=== PATIENT | male | born 1965 | race Caucasian/White ===

== ENCOUNTER 2022-02-13 09:56 | Inpatient (IN) ==
--- NOTE | 2022-02-13 10:11 | Emergency Department Note ---
Impression & Plan Suicidal ideations, Depression, Alcohol abuse ED Provider Note NAME: PAULO SAMAYOA AGE: 56 SEX: M : 1965 ARRIVES VIA: [employer] INFORMANT: Patient ED PROVIDER(S): Ross Gomez DO CHIEF COMPLAINT: mood disorder HPI: Patient is a 56-year-old male who presents the ER feeling helpless and he has no reason to live. He notes he wants to kill himself. He went to the [facility] to get checked in but they sent him over here to be evaluated. He admits for the past week he has been drinking about 1/5 of alcohol a day. He last drank at about 4 AM. Denies any headache or change in vision. No chest pain or shortness of breath. No nausea vomiting or diarrhea. He made statements at the [facility] that he was going to kill himself and requested the officers gun so he could shoot himself. He also admits to chronic testicular pain which occurred 3 months after his TURP performed in 2020. He remembers his symptoms starting somewhere around July. They have been persistent. He has been intermittent prescribed OxyContin. He is scheduled appointment with pain management has not but has not been evaluated there yet. Pain is unchanged in any way. ROS: See above HPI for pertinent positives & negatives. A total of 10 systems reviewed and were otherwise negative. PAST MEDICAL HISTORY:See Below PAST SURGICAL HISTORY:See Below FAMILY HISTORY:See Below SOCIAL HISTORY:See Below HOME MEDICATIONS:See Below ALLERGIES:See Below VITALS:See Below PHYSICAL EXAMINATION: GENERAL: Sitting up in bed, alert, disheveled, tearful EYE EXAM: normal conjunctiva. OROPHARYNX: mucous membranes are moist NECK: supple, no nuchal rigidity, no adenopathy, non-tender LUNGS: Clear to auscultation. Normal chest wall mechanics HEART: no murmurs, S1 normal and S2 normal ABDOMEN: abdomen soft, non-tender, normo-active bowel sounds, no masses, no rebound or guarding. : Normal external genitalia. Faint tenderness posterior aspect of the right testicle. No swelling or erythema. Positive cremasteric reflex. Normal circumcised genitalia. UPPER EXTREMITIES: upper extremities are grossly normal. LOWER EXTREMITIES: No pitting edema. NEURO EXAM: Normal sensorium, cranial nerves II-XII grossly intact, normal speech, no gross weakness of arms, no gross weakness of legs. PSYCH: Admits to suicidal ideations with a plan to kill self. MEDICAL DECISION MAKING: Patient is a 56-year-old male who presents the ER for suicidal ideations with plan to kill himself. Blood work was obtained and showed no significant leukocytosis or anemia. BMP along with LFTs bilirubin and TSH was unremarkable. UA was contaminated without signs of infection. Tox was negative. Alcohol was elevated 205. Covid was negative. He was observed in the ER for 6+ hours. He still admits to suicidal thoughts with a plan after being medically cleared. Will bed search for placement. While in the ER he was given 2 dose of Ativan and 1 dose of Librium over the course of 6 hours. He has never shown signs of withdrawal and that heart rate has never really been elevated and blood pressure has remained fairly stable in the 120s to 130s. I do favor a lot of this is anxiety. He also complains of chronic testicular pain which has been present since July and has been worked up extensively with multiple ultrasounds and he follows with urology and is referred him to pain management but has not seen them. Recently over the past month he has been prescribed narcotics and is very adamant about receiving his narcotics as well. He was given 1 dose while here but otherwise given Tylenol and Motrin. Pt was signed out to Dr. Ahmadi at the change of shift. Observation Status: Indication: Suicidal ideations and alcohol intoxication Patient with no pertinent family history, was seen first at 1010 hrs and was necessary in order to determine medical stability and avoid unnecessary admission. Upon reevaluation, 7 hours of observation revealed that the patient should be admitted to a psychiatric facility. Disposition date and time 02/13/2022 at 1700. Pt was signed out to Dr. Ahmadi at change of shift awaiting placement. Triage Nursing notes reviewed. Limited review of prior medical records performed Vital Signs: reviewed and remarkable for no significant abnormalities Differential diagnosis: Mood disorder, infection, hypoglycemia, electrolyte abnormalities, cardiac sources, intracerebral event, toxicologic, trauma, neurologic, as well as other pathologies. ER treatment provided: See below Diagnostics interpreted by me: ECG: none Laboratory studies: As stated above and show below. Imaging studies: See below Consultation(s): none Procedures: none Critical Care: None Past Med/Surg History Medical History BPH (benign prostatic hyperplasia) Emphysema of lung GERD (gastroesophageal reflux disease) History of alcoholism Hx of colonic polyps Hx of pancreatitis 20+ years ago Surgical History H/O transurethral resection of prostate History of colonoscopy Family History Father Lung cancer Mother Lung cancer Denies family history of Ovarian cancer Prostate cancer Myocardial infarction Breast cancer Colorectal cancer Social History (System 02/13/22 @ 10:56 by Ravi Pritchard) Smoking Status: Current some day smoker Tobacco Type: E-cigarettes / Vaping Age Started Using Tobacco: 18; Age Quit Using Tobacco: 35; packs per day: 0.5; Years Smoked: 17; Cigarettes Per Day: 10; Number of Years Since Quit: 15; Second Hand Exposure: Yes (hx); Hx Alcohol Use: No (hx alcoholism quit ~1999) Hx Substance Use: No Preferred Language: [place] Islander Communication Ability: Effective Visual Impairment: No Limitations Hearing Ability: Normal Sales Development Representative Required: No Beliefs That Will Affect Care: None marital status: Current Living Situation: Spouse current occupational status: employed current occupation: Therapist How many Children do You have: 1 Feels Safe at Home: Yes Childhood Exposure to Second-Hand Smoke: Yes caffeine: Yes during the past year weight has: remained stable Dental Care, Regularly: Yes Physical Activity Frequency: Daily Seatbelt Use: always Sunscreen Use: Yes Assistive Devices: Glasses Allergies Allergies Allergy/AdvReac Type Severity Reaction Status Date / Time No Known Allergies Allergy Verified 02/13/22 10:56 Home Meds Home Medications Medication Instructions Recorded Confirmed umeclidinium 62.5 mcg-vilanterol 1 inh INHALATION QAM 07/31/21 02/06/22 25 mcg/actuation powdr for inhalation (Anoro Ellipta) propranolol 10 mg tablet 10 mg PO QAM 08/09/21 02/06/22 olanzapine 5 mg tablet 5 mg PO QPM 02/06/22 02/06/22 oxycodone 10 mg tablet,crush 10 mg PO BID PRN 02/06/22 02/06/22 resistant,extended release 12 hr (OxyContin) Ativan 1 mg PO Q8 PRN 02/13/22 02/13/22 OxyContin 10 mg PO BID 02/13/22 02/13/22 Prilosec OTC 20 mg PO DAILY 02/13/22 02/13/22 Previous Rx's Medication Instructions Recorded chlorpheniramine maleate 4 mg 4 mg PO Q12H 30 Days #60 tab 07/24/21 tablet (Allergy Relief (chlorpheniramine)) omeprazole magnesium 20 mg 20 mg PO QAM #90 cap 02/01/22 capsule,delayed release (Acid Roof Fitter (omeprazole)) lorazepam 1 mg tablet (Ativan) 1 mg PO BID PRN #10 tab 02/06/22 fluticasone propionate 50 1 spray INTRANASAL BID #18.2 ml 02/09/22 mcg/actuation nasal spray,suspension (Flonase Allergy Relief) Results & Data (ED) Vital Signs Vital Signs - 24 hr 02/13/22 09:44 02/13/22 13:36 02/13/22 15:00 Temperature 36.4 C L Temperature Source Temporal Artery Scan Pulse Rate 97 H Pulse Rate [Finger] 100 H Pulse Rhythm Regular Pulse Strength Normal Respiratory Rate 16 20 18 Respiratory Effort / Characteristics Non-Labored Non-Labored Spontaneous Non-Labored Respiratory Depth Normal Normal Normal Respiratory Pattern Regular Regular Blood Pressure 150/84 H Blood Pressure [Right Arm] 125/78 Blood Pressure Mean 106 Blood Pressure Mean [Right Arm] 93 Blood Pressure Position [Right Arm] Sitting Pulse Oximetry 98 96 96 Oxygen Delivery Method Room Air Room Air Room Air Sepsis Recent Fever Within 48 Hours No Sepsis New/Unexplained Change in Mental Status No Sepsis Action Taken by Nursing No Action Required 02/13/22 16:00 Temperature 37.0 C Temperature Source Oral Pulse Rate Pulse Rate [Finger] 85 Pulse Rhythm Pulse Strength Respiratory Rate 20 Respiratory Effort / Characteristics Non-Labored Respiratory Depth Normal Respiratory Pattern Regular Blood Pressure Blood Pressure [Right Arm] 120/82 Blood Pressure Mean Blood Pressure Mean [Right Arm] 94 Blood Pressure Position [Right Arm] Lying Pulse Oximetry 98 Oxygen Delivery Method Room Air Sepsis Recent Fever Within 48 Hours Sepsis New/Unexplained Change in Mental Status Sepsis Action Taken by Nursing Laboratory Data Result diagrams: 02/13/22 10:15 02/13/22 10:15 Lab Results 02/13/22 02/13/22 02/13/22 Range/Units 10:10 10:10 10:15 WBC 5.49 (4.8-10.8) K/uL RBC 4.70 (4.7-6.1) M/uL Hgb 14.9 (14.0-18.0) g/dL Hct 41.1 L (42-52) % MCV 87.4 (80-100) fL MCH 31.7 (25-34) pg MCHC 36.3 H (32-36) g/dL RDW Std Deviation 43.7 (36.4-46.3) fL RDW Coeff of Mckenzie 13.6 (11.5-14.5) % Plt Count 411 H (130-400) K/uL MPV 8.6 (7.4-10.4) fL Immature Gran % (Auto) 0.2 % Neut % (Auto) 53.8 % Lymph % (Auto) 36.6 % Divide % (Auto) 5.8 % Eos % (Auto) 1.8 % Baso % (Auto) 1.8 % Neut # (Auto) 2.95 (1.4-6.5) K/uL Lymph # (Auto) 2.01 (1.2-3.4) K/uL Divide # (Auto) 0.32 (0.11-0.59) K/uL Eos # (Auto) 0.10 (0-0.5) K/uL Baso # (Auto) 0.10 (0-0.2) K/uL Immature Gran # (Auto) 0.01 (0.00-0.02) K/uL Sodium (136-145) mmol/L Potassium (3.5-5.1) mmol/L Chloride (98-107) mmol/L Carbon Dioxide (21-32) mmol/L Anion Gap (3-11) BUN (6-23) mg/dl Creatinine (0.6-1.4) mg/dl Est Cr Clr Drug Dosing ml/min Est GFR ( Amer) ml/min Est GFR (Non-Af Amer) ml/min BUN/Creatinine Ratio (10-20) Glucose (70-99(Fasting)) mg/dl Calcium (8.5-10.1) mg/dl Total Bilirubin (0.2-1.0) mg/dl AST (13-39) U/L ALT (7-52) U/L Alkaline Phosphatase (34-104) U/L Total Protein (6.0-8.3) gm/dl Albumin (3.4-5.0) gm/dl Globulin (2.5-4.0) gm/dl Albumin/Globulin Ratio (0.9-2) TSH (0.300-4.500) uIu/ml Urine Color Dark Yellow Urine Appearance Clear (Clear) Urine pH 7.0 (4.5-7.5) Ur Specific [place] 1.031 H (1.000-1.030) Urine Protein 2+ H (Negative) Urine Glucose (UA) Negative (Negative) Urine Ketones Trace H (Negative) Urine Blood Trace H (Negative) Urine Nitrite Negative (Negative) Urine Bilirubin Negative (Negative) Urine Urobilinogen Negative (Negative) Ur Leukocyte Esterase Negative (Negative) Urine WBC (Auto) 1-5 (0-5) /hpf Urine RBC (Auto) 0-4 (0-4) /hpf U Hyaline Cast (Auto) 10-30 H (0-5) /lpf U Epithel Cells (Auto) >30 H (0-5) /lpf Urine Bacteria (Auto) Negative (Negative) Salicylates (3.0-30) mg/dl Urine Opiates Screen Neg (Neg) Ur Methadone, Qual Neg (Neg) Acetaminophen (10-30) ug/ml Urine Barbiturates Neg (Neg) Ur Phencyclidine (PCP) Neg (Neg) U Amphetamin/Meth Scrn Neg (Neg) MDMA (Ecstasy) Screen Neg (Neg) U Benzodiazepines Scrn Neg (Neg) Ur Cocaine Metabolite Neg (Neg) U Marijuana (THC) Screen Neg (Neg) Ethyl Alcohol mg/dL (<10.0) mg/dl SARS-CoV-2, RNA, NAAT (NEGATIVE) 02/13/22 02/13/22 02/13/22 Range/Units 10:15 10:15 10:15 WBC (4.8-10.8) K/uL RBC (4.7-6.1) M/uL Hgb (14.0-18.0) g/dL Hct (42-52) % MCV (80-100) fL MCH (25-34) pg MCHC (32-36) g/dL RDW Std Deviation (36.4-46.3) fL RDW Coeff of Mckenzie (11.5-14.5) % Plt Count (130-400) K/uL MPV (7.4-10.4) fL Immature Gran % (Auto) % Neut % (Auto) % Lymph % (Auto) % Divide % (Auto) % Eos % (Auto) % Baso % (Auto) % Neut # (Auto) (1.4-6.5) K/uL Lymph # (Auto) (1.2-3.4) K/uL Divide # (Auto) (0.11-0.59) K/uL Eos # (Auto) (0-0.5) K/uL Baso # (Auto) (0-0.2) K/uL Immature Gran # (Auto) (0.00-0.02) K/uL Sodium 140 (136-145) mmol/L Potassium 3.9 (3.5-5.1) mmol/L Chloride 106 (98-107) mmol/L Carbon Dioxide 25 (21-32) mmol/L Anion Gap 9 (3-11) BUN 14 (6-23) mg/dl Creatinine 0.99 (0.6-1.4) mg/dl Est Cr Clr Drug Dosing 91.4 ml/min Est GFR ( Amer) 98.3 ml/min Est GFR (Non-Af Amer) 84.8 ml/min BUN/Creatinine Ratio 14.1 (10-20) Glucose 91 (70-99(Fasting)) mg/dl Calcium 8.5 (8.5-10.1) mg/dl Total Bilirubin 0.4 (0.2-1.0) mg/dl AST 18 (13-39) U/L ALT 16 (7-52) U/L Alkaline Phosphatase 71 (34-104) U/L Total Protein 7.3 (6.0-8.3) gm/dl Albumin 4.2 (3.4-5.0) gm/dl Globulin 3.1 (2.5-4.0) gm/dl Albumin/Globulin Ratio 1.4 (0.9-2) TSH 0.366 (0.300-4.500) uIu/ml Urine Color Urine Appearance (Clear) Urine pH (4.5-7.5) Ur Specific [place] (1.000-1.030) Urine Protein (Negative) Urine Glucose (UA) (Negative) Urine Ketones (Negative) Urine Blood (Negative) Urine Nitrite (Negative) Urine Bilirubin (Negative) Urine Urobilinogen (Negative) Ur Leukocyte Esterase (Negative) Urine WBC (Auto) (0-5) /hpf Urine RBC (Auto) (0-4) /hpf U Hyaline Cast (Auto) (0-5) /lpf U Epithel Cells (Auto) (0-5) /lpf Urine Bacteria (Auto) (Negative) Salicylates < 3.0 L (3.0-30) mg/dl Urine Opiates Screen (Neg) Ur Methadone, Qual (Neg) Acetaminophen < 3 L (10-30) ug/ml Urine Barbiturates (Neg) Ur Phencyclidine (PCP) (Neg) U Amphetamin/Meth Scrn (Neg) MDMA (Ecstasy) Screen (Neg) U Benzodiazepines Scrn (Neg) Ur Cocaine Metabolite (Neg) U Marijuana (THC) Screen (Neg) Ethyl Alcohol mg/dL (<10.0) mg/dl SARS-CoV-2, RNA, NAAT (NEGATIVE) 02/13/22 02/13/22 Range/Units 10:15 10:20 WBC (4.8-10.8) K/uL RBC (4.7-6.1) M/uL Hgb (14.0-18.0) g/dL Hct (42-52) % MCV (80-100) fL MCH (25-34) pg MCHC (32-36) g/dL RDW Std Deviation (36.4-46.3) fL RDW Coeff of Mckenzie (11.5-14.5) % Plt Count (130-400) K/uL MPV (7.4-10.4) fL Immature Gran % (Auto) % Neut % (Auto) % Lymph % (Auto) % Divide % (Auto) % Eos % (Auto) % Baso % (Auto) % Neut # (Auto) (1.4-6.5) K/uL Lymph # (Auto) (1.2-3.4) K/uL Divide # (Auto) (0.11-0.59) K/uL Eos # (Auto) (0-0.5) K/uL Baso # (Auto) (0-0.2) K/uL Immature Gran # (Auto) (0.00-0.02) K/uL Sodium (136-145) mmol/L Potassium (3.5-5.1) mmol/L Chloride (98-107) mmol/L Carbon Dioxide (21-32) mmol/L Anion Gap (3-11) BUN (6-23) mg/dl Creatinine (0.6-1.4) mg/dl Est Cr Clr Drug Dosing ml/min Est GFR ( Amer) ml/min Est GFR (Non-Af Amer) ml/min BUN/Creatinine Ratio (10-20) Glucose (70-99(Fasting)) mg/dl Calcium (8.5-10.1) mg/dl Total Bilirubin (0.2-1.0) mg/dl AST (13-39) U/L ALT (7-52) U/L Alkaline Phosphatase (34-104) U/L Total Protein (6.0-8.3) gm/dl Albumin (3.4-5.0) gm/dl Globulin (2.5-4.0) gm/dl Albumin/Globulin Ratio (0.9-2) TSH (0.300-4.500) uIu/ml Urine Color Urine Appearance (Clear) Urine pH (4.5-7.5) Ur Specific [place] (1.000-1.030) Urine Protein (Negative) Urine Glucose (UA) (Negative) Urine Ketones (Negative) Urine Blood (Negative) Urine Nitrite (Negative) Urine Bilirubin (Negative) Urine Urobilinogen (Negative) Ur Leukocyte Esterase (Negative) Urine WBC (Auto) (0-5) /hpf Urine RBC (Auto) (0-4) /hpf U Hyaline Cast (Auto) (0-5) /lpf U Epithel Cells (Auto) (0-5) /lpf Urine Bacteria (Auto) (Negative) Salicylates (3.0-30) mg/dl Urine Opiates Screen (Neg) Ur Methadone, Qual (Neg) Acetaminophen (10-30) ug/ml Urine Barbiturates (Neg) Ur Phencyclidine (PCP) (Neg) U Amphetamin/Meth Scrn (Neg) MDMA (Ecstasy) Screen (Neg) U Benzodiazepines Scrn (Neg) Ur Cocaine Metabolite (Neg) U Marijuana (THC) Screen (Neg) Ethyl Alcohol mg/dL 205.2 H (<10.0) mg/dl SARS-CoV-2, RNA, NAAT NEGATIVE (NEGATIVE) Administered Medications Discontinued Medications Acetaminophen (Acetaminophen 500 Mg Tab) 1,000 mg PO NOW STA Stop: 02/13/22 11:24 Last Admin: 02/13/22 11:33 Dose: 1,000 mg Documented by: [id number] Chlordiazepoxide HCl (Chlordiazepoxide Hcl 25 Mg Cap) 50 mg PO NOW ONE Stop: 02/13/22 16:29 Last Admin: 02/13/22 16:34 Dose: 50 mg Documented by: [id number] Ibuprofen (Ibuprofen 200 Mg Tab) 400 mg PO NOW STA Stop: 02/13/22 11:24 Last Admin: 02/13/22 11:33 Dose: 400 mg Documented by: [id number] Lorazepam (Lorazepam 1 Mg Tab) 1 mg SL NOW STA Stop: 02/13/22 10:27 Last Admin: 02/13/22 10:33 Dose: 1 mg Documented by: [id number] Lorazepam (Lorazepam 1 Mg Tab) 1 mg SL NOW STA Stop: 02/13/22 13:39 Last Admin: 02/13/22 13:50 Dose: 1 mg Documented by: [id number] Oxycodone HCl (Oxycodone Hcl Ir 5 Mg Tab (Immediate Release)) 5 mg PO NOW STA Stop: 02/13/22 11:24 Last Admin: 02/13/22 11:33 Dose: 5 mg Documented by: [id number] Discharge Plan Visit Data Chief Complaint: Mental Health Evaluation ED Provider: Ross Gomez Discharge Problem: Suicidal ideations, Depression, Alcohol abuse Forms Stand Alone Forms: [facility], Suicide Prevention Resources Prescriptions Prescriptions: No Action omeprazole magnesium [Acid Roof Fitter (omeprazole)] 20 mg capsule,delayed release(DR/EC) 20 mg PO QAM Qty: 90 RF: 1 fluticasone propionate [Flonase Allergy Relief] 50 mcg/actuation spray,suspension 1 spray intranasal BID Qty: 18.2 RF: 2 chlorpheniramine maleate [Allergy Relief(chlorpheniramn)] 4 mg tablet 4 mg PO Q12H 30 Days Qty: 60 RF: 3 Anoro Ellipta 62.5-25 mcg/actuation blister with device 1 inh inhalation QAM RF: 0 propranolol 10 mg tablet 10 mg PO QAM RF: 0 lorazepam [Ativan] 1 mg tablet 1 mg PO BID PRN (Reason: anxiety) Qty: 10 RF: 0 olanzapine 5 mg tablet 5 mg PO QPM RF: 0 oxycodone [OxyContin] 10 mg tablet,oral only,ext.rel.12 hr 10 mg PO BID PRN (Reason: Pain) RF: 0 Ativan 1 mg PO Q8 PRN (Reason: Anxiety) RF: 0 OxyContin 10 mg PO BID RF: 0 Prilosec OTC 20 mg PO DAILY RF: 0 Referrals Referrals: PCP,NO [Physician] - Discharge Problem: Depression Qualifiers: Depression Type: unspecified Qualified Code(s): F32.A - Depression, unspecified
[2022-02-13] MEDS ORDERED: LORazepam 1 MG TAB SL STA ×2 (10:26→13:38)
[2022-02-13 10:27] LABS: Appearance Urine Clear (Clear); Bacteria Urine Automated Negative (Negative); Bilirubin Urine Negative (Negative); Blood Urine Trace (Negative); Color Urine Dark Yellow; Epithelial Cell Urine Auto >30 /lpf (0-5); Glucose Urine UA Negative (Negative); Ketones Urine Trace (Negative); Leukocyte Esterase Urine Negative (Negative); Nitrite Urine Negative (Negative); Protein Urine 2+ (Negative); RBC Urine Automated 0-4 /hpf (0-4); Specific Gravity Urine 1.031 (1.000-1.030); Urobilinogen Urine Negative (Negative)
[2022-02-13 10:32] LABS: Basophils % (auto) 1.8 %; Eosinophils % (auto) 1.8 %; Hematocrit (blood only) 41.1 % (42-52); Hemoglobin 14.9 g/dL (14.0-18.0); Immature Granulocytes # (auto) 0.01 K/uL (0.00-0.02); Immature Granulocytes % (auto) 0.2 %; Lymphocytes # (auto) 2.01 K/uL (1.2-3.4); Lymphocytes % (auto) 36.6 %; Mean Corpuscular Hemoglobin 31.7 pg (25-34); Mean Corpuscular Hgb Conc 36.3 g/dL (32-36); Mean Corpuscular Volume 87.4 fL (80-100); Mean Platelet Volume 8.6 fL (7.4-10.4); Monocytes # (auto) 0.32 K/uL (0.11-0.59); Monocytes % (auto) 5.8 %; Neutrophils # (auto) 2.95 K/uL (1.4-6.5); Neutrophils % (auto) 53.8 %; Platelet Count 411 K/uL (130-400); RDW Coefficient of Variation 13.6 % (11.5-14.5); RDW Standard Deviation 43.7 fL (36.4-46.3); White Blood Count 5.49 K/uL (4.8-10.8)
[2022-02-13 10:49] LABS: Amphetamines+Metham, Urine Neg (Neg); Barbiturates, Urine Neg (Neg); Benzodiazepine, Urine Neg (Neg); Cocaine, Urine Neg (Neg); MDMA (Ecstacy), Urine Neg (Neg); Methadone, Urine Neg (Neg); Opiate, Urine Neg (Neg); Phencyclidine, Urine Neg (Neg)
[2022-02-13 10:51] LABS: Acetaminophen < 3 ug/ml (10-30); Salicylate < 3.0 mg/dl (3.0-30)
[2022-02-13 10:52] LABS: Albumin Globulin Ratio 1.4 (0.9-2); Albumin Level 4.2 gm/dl (3.4-5.0); BUN Creatinine Ratio 14.1 (10-20); Bilirubin,Total 0.4 mg/dl (0.2-1.0); Calcium 8.5 mg/dl (8.5-10.1); Creatinine Clr Calc Pharmacy 91.4 ml/min; Est GFR (African American) 98.3 ml/min; Est GFR (Non-African American) 84.8 ml/min; Globulin 3.1 gm/dl (2.5-4.0); Potassium 3.9 mmol/L (3.5-5.1); Total Protein 7.3 gm/dl (6.0-8.3)
[2022-02-13] MEDS ORDERED: ACETAMINOPHEN 500 MG TAB PO STA (11:23)
[2022-02-13] MEDS ORDERED: IBUPROFEN 200 MG TAB PO STA (11:23)
[2022-02-13] MEDS ORDERED: oxyCODONE HCL IR 5 MG TAB (IMMEDIATE RELEASE) PO STA ×2 (11:23→22:34)
[2022-02-13] MEDS ORDERED: chlordiazePOXIDE HCl 25 MG CAP PO ONE (16:28)
--- NOTE | 2022-02-13 16:52 | Emergency Department Note ---
ED Visit Note I assumed care at the change of shift. The patient was awaiting a voluntary psychiatric bed for depression with suicidal ideation. The patient did have a plan to hurt himself. There was a 302 petition against him although, the patient had agreed to sign in voluntarily. The patient has a history of alcohol abuse. He has been medicated to prevent withdrawal. The patient was felt medically clear. He was seen by psychiatry case management. He was seen by our psychiatric services, [facility] He has been accepted to [facility] voluntarily. . : Depression Qualifiers: Depression Type: unspecified Qualified Code(s): F32.A - Depression, unspecified
[2022-02-13] MEDS ORDERED: LORazepam 1 MG TAB PO PRN (17:35)
[2022-02-13] MEDS ORDERED: hydrOXYzine HCl 25 MG TAB PO PRN ×2 (17:35)
[2022-02-13] MEDS ORDERED: BISMUTH SUBSALICYLATE LIQD 236 ML PO PRN (17:35)
[2022-02-13] MEDS ORDERED: SODIUM CHLORIDE 0.65% NA SOLN 45 ML (OCEAN) PRN (17:35)
[2022-02-13] MEDS ORDERED: MAGNESIUM HYDROXIDE SUSP 30 ML UDC PO PRN (17:35)
[2022-02-13] MEDS ORDERED: ALUMINUM/MAGNESIUM SUSP 30 ML UDC PO PRN (17:35)
[2022-02-13] MEDS ORDERED: ALBUTEROL HFA 8 GM INHALER INH PRN (18:51)
[2022-02-13] MEDS ORDERED: oxyCODONE HCL IR 5 MG TAB (IMMEDIATE RELEASE) PO PRN (22:35)
[2022-02-14] MEDS ORDERED: GABAPENTIN 800 MG TAB PO ONE (05:16)
[2022-02-14] MEDS: UMECLIDINIUM/VILANTEROL 62.5/25MCG 7 PUFFS/INHALER INH SCH (08:30)
[2022-02-14] MEDS: PANTOprazole 40 MG TAB PO SCH (08:31)
[2022-02-14] MEDS ORDERED: QUEtiapine FUMARATE 25 MG TABLET PO PRN (09:46)
[2022-02-14] MEDS: oxyCODONE HCL 10 MG TABCR (OxyCONTIN) PO SCH ×2 (09:58→20:13)
[2022-02-14] MEDS ORDERED: QUEtiapine FUMARATE 25 MG TABLET PO ONE (10:00)
[2022-02-14] MEDS: NICOTINE POLACRILEX 2 MG GUM MT PRN (11:11)
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
[2022-02-14] MEDS ORDERED: GABAPENTIN 600 MG TAB PO SCH (14:00)
[2022-02-14] MEDS: ACETAMINOPHEN 325 MG TAB PO PRN (19:20)
[2022-02-14] MEDS ORDERED: QUEtiapine FUMARATE 100 MG TABLET PO SCH (22:00)
[2022-02-14] MEDS: GABAPENTIN 300 MG CAP PO SCH (22:01)
[2022-02-15] MEDS: oxyCODONE HCL 10 MG TABCR (OxyCONTIN) PO SCH (07:25)
[2022-02-15] MEDS: GABAPENTIN 300 MG CAP PO SCH (07:27)
[2022-02-15] MEDS: UMECLIDINIUM/VILANTEROL 62.5/25MCG 7 PUFFS/INHALER INH SCH (07:28)
[2022-02-15] MEDS: PANTOprazole 40 MG TAB PO SCH (07:28)
[2022-02-15] MEDS: ACETAMINOPHEN 325 MG TAB PO PRN (11:23)
[2022-02-15] MEDS: NICOTINE POLACRILEX 2 MG GUM MT PRN (11:25)
--- NOTE | 2022-02-15 11:40 | Discharge Summary ---
Date of Service February 15, 2022 History of Present Illness Patient was taken to [facility] early yesterday morning by his girlfriend for SI and poor sleep. When it was determined there was not bed there he became disruptive, even verbally aggressive stating he wanted an officers gun to shoot himself. He was brought to the ED on a 302 warrant and was found to be intoxciated BHUPINDER 205 at 10 am (last drink between 4-5 am). He received Ativan X2 and Librium in addition to a 5 mg dose of Oxycodone. When sober he continued to endorse SI, regret for his recent ETOh relapse (drinking 1/5 of hard liquor a day for the past week). He was med focussed last night and is being followed for testicular pain by neurology and was referred to pain clinic. Prior to him signing in voluntarily, it was discussed with him that given his substance use hx and ongoing need for prescription opiates, any benzodiazepines he would be prescribed here would be to prevent EToh withdrawal/seizures according to hospital protocol. His report of his sleep overnight is poorer than staff and he did has scored up to 5 on the AWSS so no Ativan given. He took Vistaril prn early with little effect and was offered Neurontin loading. As he would be meeting with this MD within a few hours, gave 1 time dose of Neurontin with plan to reassess. Both ED and staff so far have felt more med seeking than in need of acute detox. He quickly escalated this am to wanting to file a grievance re: his care. PDMP database confirmed his rx of Oxycontin 10 mg BID. Any Ativan was short term prn in ED. He states Ativan is only thing that helps his panic attacks which can exacerbate his emphysema and he was assured that we have capabilities to monitor pulse ox and provide nebs via respiratory if needed. He was calmer when meeting 1-on-1 with phillip. Related multiple stressors in the past 2 years due to of an grandson from SIDS, a girlfriend dying unexpectedly of sepsis, and a friend committing suicide after texting him that she was planning to shoot herself. He reports his main father figures, 2 uncles passed soon after. 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 He decided to move to [place] with his girlfriend in June 2021 so they could be closer to his family. Since that time he's struggled with ongoing chronic pain (started s/p TURP) and some respiratory issues. He reported a few episodes of binge drinking not to the level of the past week. He reports that for the past 1-2 weeks he has been more restless, depressed, irritable, with racing thoughts and difficulty falling asleep. He is clear that these symptoms started prior to his using ETOH and he mainly used to "calm down". He stopped attending regular AA groups and didn't continue with his ther apist at [facility]. He continues to report feeling suicidal and is focussed on his anxiety and need for standing benzodiazepines ("like Klonopin, Librium, or Ativan") He reports a prior diagnosis of bipolar disorder and was on lithium and monitored while homeless with intermittent incarcerations for theft over a 10 year period prior to getting sober and moving to [place]. Physical Exam Psychiatric See admission H&P and DOD assessment. Vital Signs (Past 24 Hours) Last Vital Signs Temp 36.4 C L 02/15/22 11:28 Pulse 68 02/15/22 11:28 Resp 16 02/15/22 11:28 BP 131/95 02/15/22 11:28 Pulse Ox 98 02/15/22 11:28 Principal Diagnosis bipolar disorder Psychiatric Data See daily stay summary. In short, safety was maintained and the patient was cooperative with care. Medication changes included initiating a trial of Seroquel for mood stabilization and they tolerated this well. They had some modified coverage with Neurontin to prevent withdrawal. Any withdrawal symptoms here were rather subjective and did not result in prn benzodiazepine. A safety plan was completed prior to discharge. The patient's irritability improved significantly and he was sleeping well without evidence of psychosis. He declined additional Neurontin taper as denied symptoms of EToh detox and mainly was seeking Ativan for anxiety. He was counseled re: risks of benzodiazepines in combination with Oxycontin and is scheduled with pain management tomorrow am. He is requesting discharge. There is some suspicion he was perhaps using additional medications not prescribed for him (?Ativan) and should be on controlled substance contract at the discretion of pain management. At discharge he did admit that he had run out of pain medication. He was given 12 day supply on 02/02/22 and was admitted on 02/15/22. Patient was given 2 pills until could be seen in pain clinic to ease his transition out of hospital, avoid return to ED tonight. Patient then asked if he could be given a pill here before discharge as girlfriend would not be home in time to peanut picker medications. Directed him to call pharmacy to see if delivery was a possibility or make other arrangements as typically we do not manage or refill opiates. He voiced understanding that since his appointment with [facility] is >30 days away that he should see PCP for a 1 time refill on new meds prescribed here as Seroquel requires ongoing monitoring. He was given short supplies given concerns about risk of combining with Etoh, opiates, potential for misuse. He does not drive. Fasting labs are generally obtained as a quality measure as a baseline for atypicals, it was not ordered this am as not clear he would continue the medication and not necessarily anticipated he would be discharged today. He declined to stay to have drawn and will address at follow up with PCP. Day of Discharge Assessment Today the patient voices readiness for discharge. He is a voluntary and requesting discharge and there is no indication for involuntary commitment. They note improvement in mood and deny thoughts to harm self or others. Thoughts remain organized and they are improved from admission. There is no evidence of psychosis. They agree to take mediations as prescribed and keep follow-up appointments. They are stable for discharge to outpatient level of care. Transition of Care Transition Of Care Record: was reviewed with the patient Advance Directives Advance Directives Information Provided: Yes Advance Directives: No Mental Health Advance Directive: No Advance Directives on File: No Living Will: No Power of Speech Language Pathologist: No Advance Directives Reason:: Declines as Mental Health Visit. Risk Factors Assessment Male: Yes : Yes Do You Have Access To A Gun?: No Substance Use Disorders: Yes Previous Attempt: Yes Protective Factors Assessment : No Employed: No Stable Relationships: Yes Tobacco Cessation at Discharge Tobacco Cessation Medication Prescribed at Discharge: Offered & Pt Refused Opioid Risk Protocol patient denies abusing his medications and was counseled re: risks with benzodiazepines which will not be prescribed here or on discharge to this patient. He declined education about Narcan and will be seen in pain management clinic tomorrow so specialist more apporpriate to address his needs moving forward anyway. Total Time Total Time Spent: Greater Than 30 Minutes Discharge Data Lab Results 02/13/22 02/13/22 02/13/22 10:10 10:10 10:15 WBC 5.49 RBC 4.70 Hgb 14.9 Hct 41.1 L MCV 87.4 MCH 31.7 MCHC 36.3 H RDW Std Deviation 43.7 RDW Coeff of Mckenzie 13.6 Plt Count 411 H MPV 8.6 Immature Gran % (Auto) 0.2 Neut % (Auto) 53.8 Lymph % (Auto) 36.6 Bolivar % (Auto) 5.8 Eos % (Auto) 1.8 Baso % (Auto) 1.8 Neut # (Auto) 2.95 Lymph # (Auto) 2.01 [place]ivar # (Auto) 0.32 Eos # (Auto) 0.10 Baso # (Auto) 0.10 Immature Gran # (Auto) 0.01 Sodium Potassium Chloride Carbon Dioxide Anion Gap BUN Creatinine Est Cr Clr Drug Dosing Est GFR ( Amer) Est GFR (Non-Af Amer) BUN/Creatinine Ratio Glucose Calcium Total Bilirubin AST ALT Alkaline Phosphatase Total Protein Albumin Globulin Albumin/Globulin Ratio TSH Urine Color Dark Yellow Urine Appearance Clear Urine pH 7.0 Ur Specific Sutton 1.031 H Urine Protein 2+ H Urine Glucose (UA) Negative Urine Ketones Trace H Urine Blood Trace H Urine Nitrite Negative Urine Bilirubin Negative Urine Urobilinogen Negative Ur Leukocyte Esterase Negative Urine WBC (Auto) 1-5 Urine RBC (Auto) 0-4 U Hyaline Cast (Auto) 10-30 H U Epithel Cells (Auto) >30 H Urine Bacteria (Auto) Negative Salicylates Urine Opiates Screen Neg Ur Methadone, Qual Neg Acetaminophen Urine Barbiturates Neg Ur Phencyclidine (PCP) Neg U Amphetamin/Meth Scrn Neg MDMA (Ecstasy) Screen Neg U Benzodiazepines Scrn Neg Ur Cocaine Metabolite Neg U Marijuana (THC) Screen Neg Ethyl Alcohol mg/dL SARS-CoV-2, RNA, NAAT 02/13/22 02/13/22 02/13/22 10:15 10:15 10:15 WBC RBC Hgb Hct MCV MCH MCHC RDW Std Deviation RDW Coeff of Mckenzie Plt Count MPV Immature Gran % (Auto) Neut % (Auto) Lymph % (Auto) Bolivar % (Auto) Eos % (Auto) Baso % (Auto) Neut # (Auto) Lymph # (Auto) [place]ar # (Auto) Eos # (Auto) Baso # (Auto) Immature Gran # (Auto) Sodium 140 Potassium 3.9 Chloride 106 Carbon Dioxide 25 Anion Gap 9 BUN 14 Creatinine 0.99 Est Cr Clr Drug Dosing 91.4 Est GFR ( Amer) 98.3 Est GFR (Non-Af Amer) 84.8 BUN/Creatinine Ratio 14.1 Glucose 91 Calcium 8.5 Total Bilirubin 0.4 AST 18 ALT 16 Alkaline Phosphatase 71 Total Protein 7.3 Albumin 4.2 Globulin 3.1 Albumin/Globulin Ratio 1.4 TSH 0.366 Urine Color Urine Appearance Urine pH Ur Specific Sutton Urine Protein Urine Glucose (UA) Urine Ketones Urine Blood Urine Nitrite Urine Bilirubin Urine Urobilinogen Ur Leukocyte Esterase Urine WBC (Auto) Urine RBC (Auto) U Hyaline Cast (Auto) U Epithel Cells (Auto) Urine Bacteria (Auto) Salicylates < 3.0 L Urine Opiates Screen Ur Methadone, Qual Acetaminophen < 3 L Urine Barbiturates Ur Phencyclidine (PCP) U Amphetamin/Meth Scrn MDMA (Ecstasy) Screen U Benzodiazepines Scrn Ur Cocaine Metabolite U Marijuana (THC) Screen Ethyl Alcohol mg/dL SARS-CoV-2, RNA, NAAT 02/13/22 02/13/22 10:15 10:20 WBC RBC Hgb Hct MCV MCH MCHC RDW Std Deviation RDW Coeff of Mckenzie Plt Count MPV Immature Gran % (Auto) Neut % (Auto) Lymph % (Auto) [place]ar % (Auto) Eos % (Auto) Baso % (Auto) Neut # (Auto) Lymph # (Auto) [place] # (Auto) Eos # (Auto) Baso # (Auto) Immature Gran # (Auto) Sodium Potassium Chloride Carbon Dioxide Anion Gap BUN Creatinine Est Cr Clr Drug Dosing Est GFR ( Amer) Est GFR (Non-Af Amer) BUN/Creatinine Ratio Glucose Calcium Total Bilirubin AST ALT Alkaline Phosphatase Total Protein Albumin Globulin Albumin/Globulin Ratio TSH Urine Color Urine Appearance Urine pH Ur Specific Sutton Urine Protein Urine Glucose (UA) Urine Ketones Urine Blood Urine Nitrite Urine Bilirubin Urine Urobilinogen Ur Leukocyte Esterase Urine WBC (Auto) Urine RBC (Auto) U Hyaline Cast (Auto) U Epithel Cells (Auto) Urine Bacteria (Auto) Salicylates Urine Opiates Screen Ur Methadone, Qual Acetaminophen Urine Barbiturates Ur Phencyclidine (PCP) U Amphetamin/Meth Scrn MDMA (Ecstasy) Screen U Benzodiazepines Scrn Ur Cocaine Metabolite U Marijuana (THC) Screen Ethyl Alcohol mg/dL 205.2 H SARS-CoV-2, RNA, NAAT NEGATIVE Hospital Course (1) Bipolar disorder: (2) Alcohol use disorder: (3) Right testicular pain: (4) Emphysema of lung: The patient was admitted to the [facility] ([facility] mental health unit) on q15 min checks (behavioral with suicide precautions) for safety. The patient will participate in group, recreational, and milieu therapies and will be offered additional individual and family sessions as clinically appropriate. The patient's AUDIT score suggests problematic drinking. Brief intervention was offered and accepted. Intervention was greater than 5 min in length and included assessing readiness to quit and to set a specific goal for this hospitalization. garbage pick up worker will also assist in problem-solving and aftercare planning. He currently states he "should" return to , does not want to return to [facility] and is therefore declining a referral to [facility]. Discussed that he is being monitored and will be treated for withdrawal according to hospital protocol but will not receive standing benzodiazepines for anxiety as not clinically appropriate given his substance abuse history and co- admin with opiates increases risk for respiratory depression, etc. He was ambivalent re: additional Neurontin but will be offered TID. Reviewed that main pharmacotherapy should focus on underlying mood instability and that much of his perception of anxiety (if not EToh withdrawal prior to stay) is actually mixed episode bipolar. Risks/benefits/alternatives were reviewed re: Seroquel for mood stabilization. Will offer 25 mg po q6 hr prn during day and start 100 mg this hs with plan to titrate for mood stabilization. By the end of the visit, he voiced understanding of his treatment plan and was agreeable to ongoing hospitalization on a voluntary basis and withdrew his grievance request with social contact worker as witness. Mental Health & Subst Abuse Tx Psychiatrist Name of Psychiatrist: Betty Torres Psychiatrist's Date of Appointment with Psychiatrist: 03/22/22 Time of Appointment with Psychiatrist: 10:20 AM Psychiatric Appointment Comment: [address] [id number] Psychiatrist Release of Information: Obtained, Reviewed and Signed Therapist Name of Therapist: José Luis Melvin - Megan Donte Therapist's Date of Therapist Appointment: 02/23/22 Time of Therapist Appointment: 1:30 PM Therapy Appointment Comment: [address], [address], [place] [id number] Therapist Release of Information: Obtained, Reviewed and Signed Linen Aide Name of Linen Aide: none Post Discharge Appointments Primary Care Physician Name Of Family Doctor: [facility] Date of Appointment with PCP: 02/23/22 Time of Appointment with PCP: 9:00 AM Provider Appointment Comment: [id number], [address], [place] [facility] Release of Information: Obtained, Reviewed and Signed Smoking Cessation Counseling Tobacco Cessation Medication Prescribed at Discharge: Offered & Pt Refused Contact Information Discharge Discharge Address: [address] [place] [address], [facility] [address] Discharge Plan Discharge Items Patient Disposition: Home - Self-Care Reason For Visit: SI Discharge Diagnosis: bipolar disorder--most recent episode mixed Activity: Resume your previous activity Non-emergency contact: Primary Care Provider, Psychiatrist, Therapist and Pain Management Call non-emergency contact if: you have any medication questions and your symptoms worsen Follow-up/Referrals: Salvatore Zacarias, [Primary Care Provider] - Diet: Regular Addtl Attending Provider Instructions: SPECIAL CARE INSTRUCTIONS: 1. Follow through with your scheduled aftercare appointments. If unable to keep an appointment, please call to reschedule. 2. Take your medication only as prescribed. Medication should not be changed or stopped without the approval of your doctor. In the event of worsening symptoms or concerns about side effects, contact your doctor immediately. 3. Utilize new healthy coping skills, anger management skills, and stress management skills learned during your hospitalization. Journal feelings and process them with a support person. Identify stressors or situations that may result in relapse, deterioration or inappropriate behaviors and develop a plan to deal with those issues. 4. If your coping skills are ineffective and you are in crisis, contact your outpatient providers for direction. If unable to reach your providers, please call the [facility] CRISIS LINE AT , go to the [facility] walk-in center at [address], [place], or go to the closest Emergency Room. 5. Avoid alcohol and un-prescribed drugs. 6. You have been provided with the Mental Health Advance Directives Pamphlet for your review. 7. Your condition is stable for discharge to outpatient level of care, but recovery is an ongoing process. Ifthoughts to harm yourself or others return, follow the safety plan developed during your stay. Planning for a safe return home includes securing weapons. Our treatment team recommends weaponsbe removed from the home until your outpatient provider reassesses your progress. In rare cases where the items themselvescannot be removed, guns and ammunitionshould be secured separatelyand keys stored by a reliable personoutside of the home. If you were admitted on an involuntary commitment, the police or other legal authorities may be involved in this process. AFTERCARE APPOINTMENTS: * Please call your insurance company prior to your scheduled appointment to confirm your aftercare providers are covered. Take your insurance information to your appointments. WHO TO CALL AND WHEN: Medical Emergencies: For questions or emergencies related to your hospital stay, please contact the Inpatient Behavioral Health Unit at [phone]. A dike supervisor is on-call 30/05 for the Behavioral Health Unit for emergencies At any time you feel your situation is an emergency, you may also call 911 immediately. Pending Studies at Discharge: No Stand-Alone Forms: My [facility], Smoking Cessation Medications and DC Order Prescriptions: New quetiapine 100 mg Tablet 100 mg PO HS 15 Days Qty: 15 RF: 1 quetiapine 25 mg Tablet 50 mg PO Q6 PRN (Reason: anxiety) Qty: 10 RF: 2 Continued omeprazole magnesium [Acid Camera Repairer (omeprazole)] 20 mg capsule,delayed release(DR/EC) 20 mg PO QAM Qty: 90 RF: 1 fluticasone propionate [Flonase Allergy Relief] 50 mcg/actuation spray ,suspension 1 spray intranasal BID Qty: 18.2 RF: 2 Anoro Ellipta 62.5-25 mcg/actuation blister with device 1 inh inhalation QAM RF: 0 propranolol 10 mg tablet 10 mg PO DAILY PRN (Reason: Anxiety) RF: 0 oxycodone 10 mg tablet,oral only,ext.rel.12 hr 10 mg PO BID 1 Days Qty: 2 RF: 0 Discontinued hydroxyzine pamoate 25 mg capsule 25 mg PO DAILY PRN (Reason: Anxiety) RF: 0 Discharge Orders: Discharge Order (Routine); Ordered 02/15/22 Ordered By: Zabrina Pendleton Admission Data Admit Date/Time: 02/13/22 17:35 Attending Provider: Zabrina Penldeton Admit Provider: Zabrina Pendleton Primary Care Provider: Salvatore Zacarias Other Interventions: Discharge Summary Assessment (RN) Last Done: 02/15/22 11:28 PSY Interdisciplinary Discharge Planning Last Done: 02/15/22 11:28 Coding Level of Care Code 40014 D/C day mgmt > 30 min Diagnoses Bipolar disorder F31.9 Alcohol use disorder Right testicular pain N50.811 Emphysema of lung J43.9
== END 2022-02-15 11:56 | disposition home or self-care (01) | DRG 885 ==
LOC: ED 09:56 → MERGE 09:56 → 3S 17:28

== ENCOUNTER 2022-12-31 20:10 | Inpatient (IN) ==
[2022-12-31 20:49] LABS: Basophils # (auto) 0.06 K/uL (0-0.2); Basophils % (auto) 0.6 %; Eosinophils # (auto) 0.02 K/uL (0-0.50); Eosinophils % (auto) 0.2 %; Hematocrit (blood only) 47.4 % (42.0-52.0); Hemoglobin 16.5 g/dl (14.0-18.0); Immature Granulocytes # (auto) 0.07 K/uL (0.01-0.20); Immature Granulocytes % (auto) 0.7 %; Lymphocytes # (auto) 2.69 K/uL (1.2-3.4); Lymphocytes % (auto) 27.4 %; Mean Corpuscular Hemoglobin 30.5 pg (25.0-34.0); Mean Corpuscular Hgb Conc 34.8 g/dL (32.0-36.0); Mean Corpuscular Volume 87.6 fL (80.0-100.0); Mean Platelet Volume 8.7 fL (9.4-12.4); Monocytes # (auto) 0.49 K/uL (0.11-0.59); Neutrophils # (auto) 6.48 K/uL (1.40-6.50); Neutrophils % (auto) 66.1 %; Platelet Count 460 K/uL (130-400); RDW Standard Deviation 41.8 fL (36.4-46.3); Red Blood Count 5.41 M/uL (4.70-6.10); White Blood Count 9.81 K/ul (4.8-10.8)
[2022-12-31] MEDS ORDERED: OPTIRAY 350 100ml IV ONE (20:53)
[2022-12-31 21:02] LABS: Albumin Globulin Ratio 1.5 (0.9-2); Albumin Level 5.5 gm/dl (3.4-5.0); BUN Creatinine Ratio 9.8 (10-20); Bilirubin,Total 0.4 mg/dl (0.2-1.0); Calcium 9.4 mg/dl (8.5-10.1); Creatinine Clr Calc Pharmacy 58.5 ml/min; Est GFR (African American) 57.7 ml/min; Est GFR (Non-African American) 49.7 ml/min; Globulin 3.6 gm/dl (2.5-4.0); Potassium 3.1 mmol/L (3.5-5.1); Total Protein 9.1 gm/dl (6.0-8.3)
[2022-12-31 21:07] LABS: Troponin I High Sensitivity 14.2 pg/ml (0-20)
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
[2023-01-01] MEDS ORDERED: LORazepam 1 MG TAB SL STA ×3 (03:21→12:18)
[2023-01-01 03:44] LABS: Appearance Urine Clear (Clear); Bacteria Urine Automated Negative (Negative); Bilirubin Urine Negative (Negative); Blood Urine 2+ (Negative); Color Urine Yellow; Epithelial Cell Urine Auto >30 /lpf (0-5); Glucose Urine UA Negative (Negative); Ketones Urine Negative (Negative); Leukocyte Esterase Urine Negative (Negative); Nitrite Urine Negative (Negative); Protein Urine 2+ (Negative); RBC Urine Automated 0-4 /hpf (0-4); Specific Gravity Urine > 1.045 (1.000-1.030); Urobilinogen Urine Negative (Negative)
[2023-01-01 05:39] LABS: Amphetamines+Metham, Urine Neg (Neg); Barbiturates, Urine Neg (Neg); Benzodiazepine, Urine Neg (Neg); Cocaine, Urine Neg (Neg); MDMA (Ecstacy), Urine Neg (Neg); Methadone, Urine Neg (Neg); Opiate, Urine Pos (Neg); Phencyclidine, Urine Neg (Neg)
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
--- NOTE | 2023-01-01 08:25 | CT Scan Report ---
LUMBAR SPINE CT CT DOSE: HISTORY: Trauma. Low back pain. reconstruct from the CT abdomen TECHNIQUE: Multiaxial CT images of the lumbar spine were performed and reformatted in the sagittal an d coronal plane without the use of contrast. A dose lowering technique was utilized adhering to the principles of ALARA. COMPARISON: Lumbar spine MRI 09/07/2022. FINDINGS: No fractures. No subluxation. Paraspinal soft tissues are unremarkable. Focal indentation at the superior endplate of L1 appears to represent a Schmorl's node. Moderate to severe disc space n arrowing at L5-S1. Mild disc space narrowing throughout the remaining lumbar spine. The sacrum appear s intact. IMPRESSION: No fractures within the lumbar spine. ACT 112: Negative or not required by law. Electronically signed by: Rodney Mejia M.D. 01/01/2023 8:23 AM
--- NOTE | 2023-01-01 09:05 | CT Scan Report ---
HEAD CT NONCONTRAST CT DOSE: HISTORY: Trauma TECHNIQUE: Multiaxial CT images of the head were performed without the use of intravenous contrast. A utomated exposure control was utilized for this study. A dose lowering technique was utilized adheri ng to the principles of ALARA. Comparison: None. Findings: The paranasal sinuses and mastoid air cells are clear. The calvarium and skull base are int act. The ventricles and sulci are within normal limits. There is no mass, hematoma, midline shift, or acute infarct. Impression: No acute intracranial abnormality. ACT 112: Negative or not required by law. Electronically signed by: Rodney Mejia M.D. 01/01/2023 9:04 AM
--- NOTE | 2023-01-01 09:15 | CT Scan Report ---
CT chest diagnostic wo con CT DOSE: 1478.84 mGy.cm HISTORY: Trauma TECHNIQUE: Multiaxial CT images of the chest were performed without contrast. A dose lowering techni que was utilized adhering to the principles of ALARA. COMPARISON: None. FINDINGS: Mild superior endplate compression deformities at T4 and T5 appear to be chronic. There are old, healed bilateral rib fractures. There is an old, healed sternal fracture. No acute fractures id entified within the chest. There is contrast extravasation noted within the left upper arm. No intrav enous contrast identified on this study. Normal esophagus. No mediastinal hematoma or lymphadenopathy . The heart is normal in size. No pleural or pericardial effusions. Normal caliber thoracic aorta. Th e central airways are patent. Biapical blebs are noted. Faint tree-in-bud nodular airspace opacities within the right upper lobe. Linear densities within the lower lobes posteriorly. There is a 7 mm sub pleural nodular density within the lingula on image 212. No pneumothorax. IMPRESSION: 1. No acute traumatic process within the chest. 2. Contrast extravasation seen within the left upper arm. 3. Linear densities within the lower lobes posteriorly favor dependent change. A pneumonia could also have a similar appearance. 4. Faint tree-in-bud nodular airspace opacities within the right upper lobe consistent with a mild in fectious bronchiolitis. 5. A 7 mm subpleural nodular density within the lingula. This may represent scarring. However, [address] follow-up recommended to ensure stability. 6. This report was called/faxed to the emergency department following dictation. ACT 112: Negative or not required by law. Electronically signed by: Rodney Mejia M.D. 01/01/2023 9:12 AM
--- NOTE | 2023-01-01 09:24 | CT Scan Report ---
ABDOMEN AND PELVIS CT WITHOUT CONTRAST CT DOSE: 1208.47 mGy.cm HISTORY: Trauma TECHNIQUE: Multiaxial CT images of the abdomen and pelvis were performed without contrast. A dose lo wering technique was utilized adhering to the principles of ALARA. COMPARISON STUDY: Abdomen and pelvis CT 09/29/2022. FINDINGS: Bibasilar linear densities are again noted. There is a 7 mm subpleural nodular density with in the lingula on image 21. These are better appreciated on the same day chest CT. Contrast extravasa tion seen within the left upper arm. No pneumoperitoneum. No pneumatosis. No acute fractures identifi ed. A stable 5 mm hypodense lesion within the left hepatic lobe. This is technically too small to jailyn racterize but favors a cyst. The unenhanced spleen, adrenal glands, and pancreas unremarkable. No ret roperitoneal hematoma or lymphadenopathy. Small of contrast is seen within the urinary system. The ki dneys are unremarkable. No hydronephrosis. No bladder wall thickening. No pelvic free fluid. Colonic diverticulosis. No evidence for acute diverticulitis. No bowel wall thickening or obstruction. Normal appendix. IMPRESSION: 1. No acute traumatic process within the abdomen or pelvis. 2. Contrast extravasation seen within the left upper arm. 3. Please refer to the same day chest CT for further evaluation of the lung bases. ACT 112: Negative or not required by law. Electronically signed by: Rodney Mejia M.D. 01/01/2023 9:21 AM
--- NOTE | 2023-01-01 09:38 | CT Scan Report ---
CT OF THE CERVICAL SPINE WITHOUT CONTRAST CLINICAL HISTORY: Trauma COMPARISON STUDY: Cervical spine radiographs June 10, 2022. TECHNIQUE: Helical axial images of the cervical spine were obtained without IV contrast. Sagittal a nd coronal reconstructions were viewed. Automated exposure control was utilized for the study. A do se lowering technique was utilized adhering to the principles of ALARA. FINDINGS: Alignment of the cervical spine is anatomic. Vertebral body heights are maintained. No acut e cervical spine fracture or subluxation is present. There is no prevertebral edema. Facet joints are intact. Mild anterolisthesis of C7 on T1 is unchanged since prior radiographs. Moderate multilevel facet arthrosis and degenerative disc disease is present. IMPRESSION: No acute cervical spine fracture or subluxation. ACT 112: Negative or not required by law. Electronically signed by: Jonah Nash M.D. 01/01/2023 9:37 AM
[2023-01-01] MEDS ORDERED: LORazepam 2 MG/1 ML VIAL IV STA (16:19)
[2023-01-01] MEDS ORDERED: MULTI-VITAMIN INFUSION 10 ML, THIAMINE HCL 100 MG, FOLIC ACID 1 MG in SODIUM CHLORIDE 0... IV ONE (16:19)
[2023-01-01] MEDS ORDERED: LORazepam 2 MG/1 ML VIAL IV PRN (16:22)
[2023-01-01] MEDS ORDERED: Ativan IV Alcohol Withdrawal--Active Protocol IV PRN (16:22)
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
[2023-01-01] MEDS: LORazepam 2 MG/1 ML VIAL IV PRN ×5 (19:58→23:54)
[2023-01-01] MEDS ORDERED: GABAPENTIN 1200MG ALCOHOL WITHDRAWAL LOAD PO STA (20:27)
[2023-01-01] MEDS ORDERED: oxyCODONE/ACETAMINOPHEN 5mg/325mg TAB PO PRN (20:27)
[2023-01-01] MEDS ORDERED: LORazepam 1 MG TAB PO PRN (20:27)
[2023-01-01] MEDS ORDERED: GABAPENTIN 600 MG TAB PO ONE (20:27)
[2023-01-01] MEDS: ENOXAPARIN INJ 40 MG/0.4 ML SYR SQ SCH (20:47)
[2023-01-02] MEDS ORDERED: GABAPENTIN 600 MG TAB PO SCH ×2 (00:15→14:15)
[2023-01-02] MEDS ORDERED: chlordiazePOXIDE ALCOHOL WITHDRAWL 50MG PO STA (00:20)
[2023-01-02] MEDS ORDERED: POTASSIUM CHLORIDE PWD 20 MEQ PACK PO STA (00:22)
--- NOTE | 2023-01-02 00:22 | Communication Note ---
Date of Service: January 02, 2023 Patient transferred to ICU for management of alcohol withdrawal uncontrolled after multiple doses of IV Ativan and switching gabapentin to Librium.
[2023-01-02] MEDS ORDERED: NSS + 20MEQ KCL 20 MEQ/1,000 ML BAG IV ONE (00:23)
[2023-01-02] MEDS: LORazepam 2 MG/1 ML VIAL IV PRN ×6 (00:56→21:15)
[2023-01-02] MEDS: chlordiazePOXIDE HCl 25 MG CAP PO SCH ×4 (00:56→17:52)
[2023-01-02] MEDS: ACETAMINOPHEN 325 MG TAB PO PRN ×2 (01:03→18:02)
[2023-01-02] MEDS ORDERED: oxyCODONE HCL IR 5 MG TAB (IMMEDIATE RELEASE) PO STA (01:32)
[2023-01-02] MEDS ORDERED: oxyCODONE HCL IR 5 MG TAB (IMMEDIATE RELEASE) PO PRN (01:32)
[2023-01-02] MEDS ORDERED: oxyCODONE HCL IR 5 MG TAB (IMMEDIATE RELEASE) ONE (01:43)
[2023-01-02] MEDS ORDERED: OLANZapine 10 MG/2.1 ML SDV IM STA (04:02)
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
[2023-01-02 05:43] LABS: Basophils # (auto) 0.08 K/uL (0-0.2); Basophils % (auto) 1.1 %; Eosinophils # (auto) 0.15 K/uL (0-0.50); Eosinophils % (auto) 2.1 %; Hematocrit (blood only) 30.9 % (42.0-52.0); Hemoglobin 10.9 g/dl (14.0-18.0); Immature Granulocytes # (auto) 0.02 K/uL (0.01-0.20); Immature Granulocytes % (auto) 0.3 %; Lymphocytes # (auto) 2.46 K/uL (1.2-3.4); Lymphocytes % (auto) 35.1 %; Mean Corpuscular Hemoglobin 30.5 pg (25.0-34.0); Mean Corpuscular Hgb Conc 35.3 g/dL (32.0-36.0); Mean Corpuscular Volume 86.6 fL (80.0-100.0); Monocytes # (auto) 0.75 K/uL (0.11-0.59); Monocytes % (auto) 10.7 %; Neutrophils # (auto) 3.54 K/uL (1.40-6.50); Neutrophils % (auto) 50.7 %; Platelet Count 300 K/uL (130-400); RDW Coefficient of Variation 12.3 % (11.5-14.5); RDW Standard Deviation 39.2 fL (36.4-46.3); Red Blood Count 3.57 M/uL (4.70-6.10)
[2023-01-02 05:45] LABS: Albumin Level 3.6 gm/dl (3.4-5.0); Bilirubin,Total 0.4 mg/dl (0.2-1.0); Calcium 8.7 mg/dl (8.5-10.1); Magnesium 1.8 mg/dl (1.7-2.4); Potassium 3.7 mmol/L (3.5-5.1)
[2023-01-02 05:55] LABS: Albumin Globulin Ratio 1.6 (0.9-2); BUN Creatinine Ratio 25.6 (10-20); Creatinine Clr Calc Pharmacy 109.1 ml/min; Est GFR (African American) 113.8 ml/min; Est GFR (Non-African American) 98.2 ml/min; Globulin 2.3 gm/dl (2.5-4.0); Total Protein 5.9 gm/dl (6.0-8.3)
[2023-01-02] MEDS: MAGNESIUM SULFATE / D5W 1 GM/100 ML BAG IV SCH ×2 (07:18→09:30)
[2023-01-02] MEDS ORDERED: STAT IV Infusion **Titration per Protocol STA (09:27)
[2023-01-02] MEDS: dexMEDEtomidine 200 MCG/50 ML BAG IV SCH ×3 (09:42→21:32)
[2023-01-02] MEDS: FOLIC ACID 1 MG TAB PO SCH (10:00)
[2023-01-02] MEDS: THIAMINE HCL 100 MG TAB PO SCH (10:00)
[2023-01-02 10:15] LABS: Basophils # (auto) 0.06 K/uL (0-0.2); Basophils % (auto) 1.1 %; Eosinophils # (auto) 0.13 K/uL (0-0.50); Eosinophils % (auto) 2.4 %; Hematocrit (blood only) 35.3 % (42.0-52.0); Hemoglobin 12.4 g/dl (14.0-18.0); Immature Granulocytes # (auto) 0.01 K/uL (0.01-0.20); Immature Granulocytes % (auto) 0.2 %; Lymphocytes # (auto) 2.39 K/uL (1.2-3.4); Lymphocytes % (auto) 44.9 %; Mean Corpuscular Hemoglobin 30.2 pg (25.0-34.0); Mean Corpuscular Hgb Conc 35.1 g/dL (32.0-36.0); Mean Corpuscular Volume 85.9 fL (80.0-100.0); Monocytes # (auto) 0.47 K/uL (0.11-0.59); Monocytes % (auto) 8.8 %; Neutrophils # (auto) 2.26 K/uL (1.40-6.50); Neutrophils % (auto) 42.6 %; Platelet Count 337 K/uL (130-400); RDW Coefficient of Variation 12.5 % (11.5-14.5); RDW Standard Deviation 39.2 fL (36.4-46.3); Red Blood Count 4.11 M/uL (4.70-6.10); White Blood Count 5.32 K/ul (4.8-10.8)
[2023-01-02 12:24] LABS: Hemoglobin 11.2 g/dl (14.0-18.0); Mean Corpuscular Hemoglobin 30.7 pg (25.0-34.0); Mean Corpuscular Volume 87.7 fL (80.0-100.0); Mean Platelet Volume 8.7 fL (9.4-12.4); Platelet Count 292 K/uL (130-400); RDW Coefficient of Variation 12.7 % (11.5-14.5); Red Blood Count 3.65 M/uL (4.70-6.10); White Blood Count 5.15 K/ul (4.8-10.8)
[2023-01-02] MEDS: ICU Protocol for HYPERglycemia SCH ×4 (12:40→20:25)
[2023-01-02 12:47] LABS: Codeine Urine NEGATIVE ng/mL (<50); Hydrocodone Urine NEGATIVE ng/mL (<50); Hydromor Urine NEGATIVE ng/mL (<50); Morphine Urine 1970 ng/mL (<50); Norhydrocodone Conf Ur NEGATIVE ng/mL (<50); Noroxycodone Urine NEGATIVE ng/mL (<50); Oxycodone Urine NEGATIVE ng/mL (<50); Oxymorph Urine NEGATIVE ng/mL (<50)
--- NOTE | 2023-01-02 14:05 | Hospitalist Progress Note ---
Date of Service January 02, 2023 Assessment & Plan (1) Alcohol withdrawal: (2) Suicidal ideations: (3) Depression: (4) Bipolar 1 disorder: (5) PTSD (post-traumatic stress disorder): (6) History of alcoholism: Plan Alcohol withdrawal Delirium Tremens On Precedex drip Also on Librium protocol Continue thiamine, folic acid Monitor for withdrawal Appreciate metal box maker help Suicide Attempt PTSD/Depression/Bipolar Suicidal precautions Currently not on any medications Psychiatry consulted Chronic back pain with DDD: On Opioids at home Lung nodule on CT chest: -pt is a former smoker CT chest:7 mm subpleural nodular density within the lingula. This may represent scarring. However, [address] follow-up recommended to ensure stability. Needs follow up as outpatient Emphysema: Prior H/O smoking currently not on any inhalers No signs of exacerbation BPH S/P TURP: Monitor for any retention DVT Px: Lovenox SQ Code Status: FULL CODE Admission and Anticipated Discharge Date Admission Date: January 01, 2023 Subjective Patient is seen and examined at bedside Unable to obtain much history Discussed with ICU staff Sitter at bedside Patient drowsy on Precedex drip, combative at times Review of Systems Review of Systems: All systems reviewed & are unremarkable except as noted in Subjective Physical Exam Physical Exam: Physical Exam: Vitals signs as noted above General Appearance:Moderately built and nourished, Drowsy Head: normocephalic, Atraumatic Eyes: normal inspection, EOMI Neck: supple, Trachea midline Respiratory/Chest: Normal breath sounds, CTA, No accessory muscle use Cardiovascular: S1, S2, No murmur Abdomen/GI:Soft, Non tender, Bowel sounds present Extremities/Musculoskeletal:normal inspection, no edema Neurologic/Psych:grossly no focal neurological deficits, Drowsy, Lethargic Skin: normal color, warm Results & Data Results & Data ([facility]) Vital Signs (Past 12 Hours) Vital Signs Temp Pulse Pulse Resp BP BP Pulse Ox 01/02/23 12:00 89 25 H 94 01/02/23 12:00 119/96 01/02/23 11:30 56 L 20 93 01/02/23 11:30 91/54 L 01/02/23 11:16 57 L 20 94 01/02/23 11:16 86/55 L 01/02/23 11:11 72 18 92 01/02/23 11:11 91/59 L 01/02/23 11:00 65 20 93 01/02/23 11:00 87/52 L 01/02/23 10:30 65 16 94 01/02/23 10:00 64 18 97 01/02/23 10:00 118/69 01/02/23 09:15 87 18 96 01/02/23 09:15 113/72 01/02/23 09:00 64 17 94 01/02/23 09:00 103/58 L 01/02/23 08:00 65 18 95 01/02/23 08:00 103/55 L 01/02/23 07:00 73 18 93 01/02/23 07:00 98/58 L 01/02/23 08:47 70 01/02/23 05:15 68 21 95 01/02/23 05:00 66 17 94 01/02/23 05:00 110/63 01/02/23 04:45 68 17 96 01/02/23 04:30 71 22 01/02/23 04:28 66 22 01/02/23 04:28 68 16 134/75 94 01/02/23 04:19 80 14 01/02/23 04:37 87 01/02/23 03:15 36.7 C 74 20 108/73 96 01/02/23 02:49 36.5 C 77 20 121/79 97 01/02/23 02:11 36.7 C 82 22 117/70 96 O2 Del Method 01/02/23 12:00 Room Air 01/02/23 12:00 01/02/23 11:30 Room Air 01/02/23 11:30 01/02/23 11:16 Room Air 01/02/23 11:16 01/02/23 11:11 Room Air 01/02/23 11:11 01/02/23 11:00 Room Air 01/02/23 11:00 01/02/23 10:30 Room Air 01/02/23 10:00 Room Air 01/02/23 10:00 01/02/23 09:15 Room Air 01/02/23 09:15 01/02/23 09:00 Room Air 01/02/23 09:00 01/02/23 08:00 Room Air 01/02/23 08:00 01/02/23 07:00 Room Air 01/02/23 07:00 01/02/23 08:47 01/02/23 05:15 01/02/23 05:00 01/02/23 05:00 01/02/23 04:45 01/02/23 04:30 01/02/23 04:28 01/02/23 04:28 Room Air 01/02/23 04:19 01/02/23 04:37 01/02/23 03:15 Room Air 01/02/23 02:49 Room Air 01/02/23 02:11 Room Air Laboratory Results Short CBC 01/02/23 01/02/23 01/02/23 Range/Units 05:10 09:39 11:56 WBC 7.00 5.32 5.15 (4.8-10.8) K/ul Hgb 10.9 L D 12.4 L 11.2 L (14.0-18.0) g/dl Hct 30.9 L 35.3 L 32.0 L (42.0-52.0) % Plt Count 300 337 292 (130-400) K/uL BMP 01/02/23 05:10 Sodium 134 L Potassium 3.7 Chloride 100 Carbon Dioxide 30 BUN 21 Creatinine 0.82 D Glucose 90 Calcium 8.7 Liver Function 01/02/23 Range/Units 05:10 Total Bilirubin 0.4 (0.2-1.0) mg/dl AST 16 (13-39) U/L ALT 22 (7-52) U/L Alkaline Phosphatase 60 (34-104) U/L Albumin 3.6 (3.4-5.0) gm/dl
[2023-01-02] MEDS: ENOXAPARIN INJ 40 MG/0.4 ML SYR SQ SCH (21:17)
[2023-01-03] MEDS: ACETAMINOPHEN 325 MG TAB PO PRN (01:48)
[2023-01-03] MEDS ORDERED: chlordiazePOXIDE HCl 25 MG CAP PO SCH (02:30)
[2023-01-03] MEDS: dexMEDEtomidine 200 MCG/50 ML BAG IV SCH ×2 (02:45→08:29)
[2023-01-03 05:58] LABS: Albumin Globulin Ratio 1.5 (0.9-2); Albumin Level 3.6 gm/dl (3.4-5.0); BUN Creatinine Ratio 17.5 (10-20); Bilirubin,Total 0.7 mg/dl (0.2-1.0); Calcium 8.9 mg/dl (8.5-10.1); Creatinine Clr Calc Pharmacy 111.8 ml/min; Est GFR (African American) 114.9 ml/min; Est GFR (Non-African American) 99.2 ml/min; Globulin 2.4 gm/dl (2.5-4.0); Phosphorus 3.2 mg/dl (2.5-4.9); Potassium 4.1 mmol/L (3.5-5.1)
[2023-01-03 06:00] LABS: Hematocrit (blood only) 33.7 % (42.0-52.0); Hemoglobin 12.2 g/dl (14.0-18.0); Mean Corpuscular Hgb Conc 36.2 g/dL (32.0-36.0); Mean Corpuscular Volume 85.8 fL (80.0-100.0); Platelet Count 296 K/uL (130-400); RDW Coefficient of Variation 12.4 % (11.5-14.5); RDW Standard Deviation 39.4 fL (36.4-46.3); Red Blood Count 3.93 M/uL (4.70-6.10); White Blood Count 4.18 K/ul (4.8-10.8)
[2023-01-03] MEDS: THIAMINE HCL 100 MG TAB PO SCH (08:29)
[2023-01-03] MEDS: FOLIC ACID 1 MG TAB PO SCH (08:29)
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
[2023-01-03] MEDS ORDERED: PHENobarbital sodium 65 MG/ML VIAL IV STA ×2 (09:52→10:18)
[2023-01-03] MEDS ORDERED: oxyCODONE HCL IR 5 MG TAB (IMMEDIATE RELEASE) PO PRN (10:12)
[2023-01-03] MEDS: oxyCODONE HCL IR 5 MG TAB (IMMEDIATE RELEASE) PO PRN ×3 (10:34→23:33)
[2023-01-03] MEDS ORDERED: oxyCODONE HCL IR 5 MG TAB (IMMEDIATE RELEASE) PO STA (12:54)
[2023-01-03] MEDS: PHENobarbital sodium 130 MG/ML VIAL IV SCH ×2 (13:03→16:29)
[2023-01-03] MEDS: ICU Protocol for HYPERglycemia SCH ×4 (14:42→20:25)
--- NOTE | 2023-01-03 15:35 | Hospitalist Progress Note ---
Date of Service January 03, 2023 Assessment & Plan (1) Alcohol withdrawal: (2) Suicidal ideations: (3) Depression: (4) Bipolar 1 disorder: (5) PTSD (post-traumatic stress disorder): (6) History of alcoholism: Plan Alcohol withdrawal Delirium Tremens Precedex drip discontinued Librium changed to phenobarbital Continue thiamine, folic acid Monitor for withdrawal Appreciate temperature regulator pyrometer help Continue current management Suicide Attempt PTSD/Depression/Bipolar Suicidal precautions Currently not on any medications Psychiatry consulted Chronic back pain with DDD: On Opioids at home possible abuse Cautious use of narcotics Lung nodule on CT chest: -pt is a former smoker CT chest:7 mm subpleural nodular density within the lingula. This may represent scarring. However, [address] follow-up recommended to ensure stability. Needs follow up as outpatient Emphysema: Prior H/O smoking currently not on any inhalers No signs of exacerbation BPH S/P TURP: Monitor for any retention DVT Px: Lovenox SQ Code Status: FULL CODE Admission and Anticipated Discharge Date Admission Date: January 01, 2023 Subjective Patient is seen and examined at bedside Alert, awake today States having lower back pain Also admits to have suicidal thoughts Sitter at bedside Denies any chest pain, dyspnea, nausea, abdominal pain Review of Systems Review of Systems: All systems reviewed & are unremarkable except as noted in Subjective Physical Exam Physical Exam: Physical Exam: Vitals signs as noted above General Appearance:Moderately built and nourished, Mild distress Head: normocephalic, Atraumatic Eyes: normal inspection, EOMI Neck: supple, Trachea midline Respiratory/Chest: Normal breath sounds, CTA, No accessory muscle use Cardiovascular: S1, S2, No murmur Abdomen/GI:Soft, Non tender, Bowel sounds present Extremities/Musculoskeletal:normal inspection, no edema Neurologic/Psych:AAOX3, grossly no focal neurological deficits, +Tremor Skin: normal color, warm Results & Data Results & Data ([facility]) Vital Signs (Past 12 Hours) Vital Signs Temp Pulse Pulse Resp BP BP Pulse Ox 01/03/23 15:00 82 26 H 97 01/03/23 15:00 128/66 01/03/23 14:00 76 23 98 01/03/23 14:00 121/70 01/03/23 13:02 89 24 01/03/23 12:08 126/75 01/03/23 12:08 64 26 H 90 01/03/23 12:00 49 L 16 99 01/03/23 12:00 132/76 01/03/23 11:01 120/77 01/03/23 11:01 52 L 18 92 01/03/23 11:00 53 L 28 H 97 01/03/23 10:00 47 L 17 94 01/03/23 10:00 117/71 01/03/23 09:10 57 L 6 L 94 01/03/23 08:00 46 L 19 96 01/03/23 08:00 120/68 01/03/23 07:00 45 L 18 96 01/03/23 07:00 119/62 01/03/23 08:00 48 L 01/03/23 05:30 48 L 15 95 01/03/23 06:00 45 L 18 126/66 96 01/03/23 05:00 43 L 19 142/70 H 95 01/03/23 04:30 42 L 15 95 01/03/23 04:00 36.5 C 45 L 16 141/73 H 95 O2 Del Method 01/03/23 15:00 Room Air 01/03/23 15:00 01/03/23 14:00 Room Air 01/03/23 14:00 01/03/23 13:02 01/03/23 12:08 01/03/23 12:08 01/03/23 12:00 01/03/23 12:00 01/03/23 11:01 01/03/23 11:01 01/03/23 11:00 01/03/23 10:00 01/03/23 10:00 01/03/23 09:10 01/03/23 08:00 01/03/23 08:00 01/03/23 07:00 Room Air 01/03/23 07:00 01/03/23 08:00 01/03/23 05:30 Room Air 01/03/23 06:00 Room Air 01/03/23 05:00 Room Air 01/03/23 04:30 Room Air 01/03/23 04:00 Room Air Laboratory Results Short CBC 01/03/23 Range/Units 05:27 WBC 4.18 L (4.8-10.8) K/ul Hgb 12.2 L (14.0-18.0) g/dl Hct 33.7 L (42.0-52.0) % Plt Count 296 (130-400) K/uL BMP 01/03/23 05:27 Sodium 139 Potassium 4.1 Chloride 108 H Carbon Dioxide 28 BUN 14 Creatinine 0.80 Glucose 118 H Calcium 8.9 Liver Function 01/03/23 Range/Units 05:27 Total Bilirubin 0.7 (0.2-1.0) mg/dl AST 14 (13-39) U/L ALT 18 (7-52) U/L Alkaline Phosphatase 62 (34-104) U/L Albumin 3.6 (3.4-5.0) gm/dl
[2023-01-03] MEDS ORDERED: GABAPENTIN 600 MG TAB PO SCH (18:15)
[2023-01-03] MEDS: PHENobarbitaL 30 MG TAB PO SCH (20:08)
[2023-01-03] MEDS: ENOXAPARIN INJ 40 MG/0.4 ML SYR SQ SCH (20:08)
[2023-01-03] MEDS: PHENobarbital sodium 130 MG/ML VIAL IV PRN (21:42)
[2023-01-04] MEDS ORDERED: chlordiazePOXIDE HCl 25 MG CAP PO SCH (02:30)
[2023-01-04] MEDS: PHENobarbital sodium 130 MG/ML VIAL IV PRN (03:09)
[2023-01-04] MEDS: oxyCODONE HCL IR 5 MG TAB (IMMEDIATE RELEASE) PO PRN ×5 (05:31→22:17)
[2023-01-04 06:08] LABS: Albumin Globulin Ratio 1.5 (0.9-2); BUN Creatinine Ratio 16.1 (10-20); Bilirubin,Total 0.3 mg/dl (0.2-1.0); Calcium 8.8 mg/dl (8.5-10.1); Creatinine Clr Calc Pharmacy 96.2 ml/min; Est GFR (African American) 105.2 ml/min; Est GFR (Non-African American) 90.8 ml/min; Globulin 2.6 gm/dl (2.5-4.0); Magnesium 1.9 mg/dl (1.7-2.4); Phosphorus 3.6 mg/dl (2.5-4.9); Potassium 3.6 mmol/L (3.5-5.1); Total Protein 6.6 gm/dl (6.0-8.3)
[2023-01-04 06:18] LABS: Hematocrit (blood only) 33.7 % (42.0-52.0); Hemoglobin 12.1 g/dl (14.0-18.0); Mean Corpuscular Hemoglobin 30.8 pg (25.0-34.0); Mean Corpuscular Hgb Conc 35.9 g/dL (32.0-36.0); Mean Corpuscular Volume 85.8 fL (80.0-100.0); Platelet Count 360 K/uL (130-400); RDW Coefficient of Variation 12.4 % (11.5-14.5); RDW Standard Deviation 39.2 fL (36.4-46.3); Red Blood Count 3.93 M/uL (4.70-6.10); White Blood Count 7.95 K/ul (4.8-10.8)
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
[2023-01-04] MEDS ORDERED: PHENobarbitaL 30 MG TAB PO PRN (07:48)
[2023-01-04] MEDS: FOLIC ACID 1 MG TAB PO SCH (08:01)
[2023-01-04] MEDS: PHENobarbitaL 30 MG TAB PO SCH ×2 (08:01→20:03)
[2023-01-04] MEDS: THIAMINE HCL 100 MG TAB PO SCH (08:30)
[2023-01-04] MEDS ORDERED: oxyCODONE HCL IR 5 MG TAB (IMMEDIATE RELEASE) PO PRN (09:27)
[2023-01-04] MEDS: ONDANSETRON INJ 2 MG/ML 2 ML VIAL IV SCH ×3 (09:59→22:18)
[2023-01-04] MEDS ORDERED: PHENobarbitaL 15 MG TAB PO ONE (10:00)
[2023-01-04] MEDS ORDERED: hydrOXYzine HCl 10 MG TAB PO PRN ×2 (14:23→17:13)
[2023-01-04] MEDS: ACETAMINOPHEN 325 MG TAB PO PRN (14:51)
--- NOTE | 2023-01-04 17:14 | Hospitalist Progress Note ---
Date of Service January 04, 2023 Assessment & Plan (1) Alcohol withdrawal: (2) Suicidal ideations: (3) Depression: (4) Bipolar 1 disorder: (5) PTSD (post-traumatic stress disorder): (6) History of alcoholism: Plan Alcohol withdrawal Delirium Tremens Precedex drip discontinued Librium changed to phenobarbital Continue thiamine, folic acid Monitor for withdrawal Appreciate woods laborer help Downgrade from ICU Suicide Attempt PTSD/Depression/Bipolar Suicidal precautions Currently not on any medications Appreciate psychiatry input [address] Cannot leave AMA Continue1:1 observation Hydroxyzine as needed Chronic back pain with DDD: On Opioids at home Possible Narcotic abuse Cautious use of narcotics Discussed with pain management--recommends to continue current management Lung nodule on CT chest: -pt is a former smoker CT chest:7 mm subpleural nodular density within the lingula. This may represent scarring. However, [address] follow-up recommended to ensure stability. Needs follow up as outpatient Emphysema: Prior H/O smoking currently not on any inhalers No signs of exacerbation BPH S/P TURP: Monitor for any retention DVT Px: Lovenox SQ Code Status: FULL CODE Admission and Anticipated Discharge Date Admission Date: January 01, 2023 Subjective Patient is seen and examined at bedside Complains to have back, neck pain from recent trauma Also states feeling anxious Discussed with pain management today States having persistent suicidal thoughts Denies any chest pain, dyspnea, nausea, abdominal pain Review of Systems Review of Systems: All systems reviewed & are unremarkable except as noted in Subjective Physical Exam Physical Exam: Physical Exam: Vitals signs as noted above General Appearance:Moderately built and nourished, Mild distress Head: normocephalic, Atraumatic Eyes: normal inspection, EOMI Neck: supple, Trachea midline Respiratory/Chest: Normal breath sounds, CTA, No accessory muscle use Cardiovascular: S1, S2, No murmur Abdomen/GI:Soft, Non tender, Bowel sounds present Extremities/Musculoskeletal:normal inspection, no edema Neurologic/Psych:AAOX3, grossly no focal neurological deficits, +Tremor Skin: normal color, warm Results & Data Results & [facility] ([facility]) Vital Signs (Past 12 Hours) Vital Signs Temp Pulse Pulse Pulse Resp BP BP 01/04/23 16:04 37.1 C 93 H 18 152/77 H 01/04/23 13:17 36.8 C 85 21 01/04/23 13:13 120/69 02/28/23 10:57 84 13 01/04/23 10:00 73 16 01/04/23 09:08 22 01/04/23 08:35 82 21 01/04/23 08:35 132/76 01/04/23 08:41 36.8 C 01/04/23 07:00 89 24 01/04/23 06:17 69 18 140/80 Pulse Ox O2 Del Method 01/04/23 16:04 97 Room Air 01/04/23 13:17 98 Room Air 01/04/23 13:13 01/04/23 10:57 01/04/23 10:00 01/04/23 09:08 01/04/23 08:35 98 Room Air 01/04/23 08:35 01/04/23 08:41 01/04/23 07:00 01/04/23 06:17 95 Room Air Laboratory Results Short CBC 01/04/23 Range/Units 05:31 WBC 7.95 (4.8-10.8) K/ul Hgb 12.1 L (14.0-18.0) g/dl Hct 33.7 L (42.0-52.0) % Plt Count 360 (130-400) K/uL BMP 01/04/23 05:31 Sodium 136 Potassium 3.6 Chloride 105 Carbon Dioxide 26 BUN 15 Creatinine 0.93 Glucose 94 Calcium 8.8 Liver Function 01/04/23 Range/Units 05:31 Total Bilirubin 0.3 (0.2-1.0) mg/dl AST 15 (13-39) U/L ALT 18 (7-52) U/L Alkaline Phosphatase 64 (34-104) U/L Albumin 4.0 (3.4-5.0) gm/dl
[2023-01-04] MEDS: hydrOXYzine HCl 25 MG TAB PO PRN ×2 (18:02→22:22)
[2023-01-04] MEDS: ENOXAPARIN INJ 40 MG/0.4 ML SYR SQ SCH (20:02)
[2023-01-04] MEDS ORDERED: KETOROLAC TROMETHAMINE 15 MG/ML VIAL IV PRN (22:34)
[2023-01-05] MEDS: ONDANSETRON INJ 2 MG/ML 2 ML VIAL IV SCH ×4 (01:53→21:42)
[2023-01-05] MEDS: oxyCODONE HCL IR 5 MG TAB (IMMEDIATE RELEASE) PO PRN ×5 (02:27→20:20)
[2023-01-05] MEDS ORDERED: GABAPENTIN 600 MG TAB PO SCH (06:15)
[2023-01-05 07:14] LABS: Magnesium 1.9 mg/dl (1.7-2.4); Phosphorus 3.8 mg/dl (2.5-4.9)
[2023-01-05] MEDS: THIAMINE HCL 100 MG TAB PO SCH (08:50)
[2023-01-05] MEDS: FOLIC ACID 1 MG TAB PO SCH (08:50)
[2023-01-05] MEDS: PHENobarbitaL 30 MG TAB PO SCH ×2 (08:54→20:20)
[2023-01-05] MEDS: hydrOXYzine HCl 25 MG TAB PO PRN ×2 (11:09→23:25)
[2023-01-05] MEDS ORDERED: MoRPHine SULFATE 4 MG/ML 1 ML CARP\\VIAL IV ONE (11:45)
[2023-01-05] MEDS ORDERED: methylPREDNISolone 30 MG in SYRINGE 0 ML IV ONE (12:15)
[2023-01-05] MEDS ORDERED: LORazepam 2 MG/1 ML VIAL IV ONE ×2 (13:44→16:30)
[2023-01-05] MEDS: BACLOFEN 10 MG TAB PO PRN ×2 (14:51→23:07)
--- NOTE | 2023-01-05 17:05 | Hospitalist Progress Note ---
Date of Service January 05, 2023 Assessment & Plan (1) Alcohol withdrawal: (2) Suicidal ideations: (3) Depression: (4) Bipolar 1 disorder: (5) PTSD (post-traumatic stress disorder): (6) History of alcoholism: Plan Alcohol withdrawal Delirium Tremens Precedex drip discontinued Librium changed to phenobarbital Continue thiamine, folic acid Monitor for withdrawal Appreciate content development manager help Continue current management Suicide Attempt PTSD/Depression/Bipolar Suicidal precautions Currently not on any medications Appreciate psychiatry input [address] Cannot leave AMA Continue1:1 observation Hydroxyzine as needed Cervicalgia DD: Musculoskeletal origin CT Neck:No acute cervical spine fracture or subluxation. Neck MRI pending Consulted orthopedics PT as able Chronic back pain with DDD: On Opioids at home Possible Narcotic abuse Cautious use of narcotics Discussed with pain management--recommends to continue current management Lung nodule on CT chest: -pt is a former smoker CT chest:7 mm subpleural nodular density within the lingula. This may represent scarring. However, [address] follow-up recommended to ensure stability. Needs follow up as outpatient Emphysema: Prior H/O smoking currently not on any inhalers No signs of exacerbation BPH S/P TURP: Monitor for any retention DVT Px: Lovenox SQ Code Status: FULL CODE Admission and Anticipated Discharge Date Admission Date: January 01, 2023 Subjective Patient is seen and examined at bedside Complains of significant neck pain Also reports poor sleep, decreased neck movement secondary to pain No other complaints Denies any chest pain, dyspnea, nausea, abdominal pain Review of Systems Review of Systems: All systems reviewed & are unremarkable except as noted in Subjective Physical Exam Physical Exam: Physical Exam: Vitals signs as noted above General Appearance:Moderately built and nourished, Mild distress Head: normocephalic, Atraumatic Eyes: normal inspection, EOMI Neck: supple, Trachea midline Respiratory/Chest: Normal breath sounds, CTA, No accessory muscle use Cardiovascular: S1, S2, No murmur Abdomen/GI:Soft, Non tender, Bowel sounds present Extremities/Musculoskeletal:normal inspection, no edema Neurologic/Psych:AAOX3, grossly no focal neurological deficits, +Tremor Skin: normal color, warm Results & Data Results & Data ([facility]) Vital Signs (Past 12 Hours) Vital Signs Temp Pulse Pulse Resp BP Pulse Ox O2 Del Method 01/05/23 14:55 82 01/05/23 08:15 36.7 C 78 18 127/67 98 Room Air 01/05/23 07:40 72
[2023-01-05] MEDS ORDERED: GADOBUTROL 65ML VIAL IV ONE (17:26)
--- NOTE | 2023-01-05 17:40 | Communication Note ---
Date of Service: January 05, 2023 Interval History Interval History I came to see pt for follow-up. He was in the bathroom, apparently showering. Based on the observations of the psychiatric liaison nurse, he appears to be voicing less suicidality but continues to report anxiety. We may be able to avoid an involuntary psychiatric admission (which it's clear he doesn't want) if the decrement in suicidal statements continues. Impression: 57 y/o man with severe alcohol and benzodiazepine dependence and a history of prevarication who has been reporting contingent suicidality depending on whether he gets benzodiazepines or not. Recommendations: * Alcohol withdrawal symptoms appear to be well-managed on phenobarbital protocol. * I'd suggest caution when it comes to prescribing hydrocodone in the hospital unless the plan is to discharge him on this. Otherwise, a taper would be in order. * I applaud the continued avoidance of lorazepam or other benzodiazepines, since these are clearly problematic for pt.
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
[2023-01-05] MEDS: ENOXAPARIN INJ 40 MG/0.4 ML SYR SQ SCH (20:21)
[2023-01-05] MEDS ORDERED: MoRPHine SULFATE 4 MG/ML 1 ML CARP\\VIAL IV STA (22:27)
[2023-01-06] MEDS: oxyCODONE HCL IR 5 MG TAB (IMMEDIATE RELEASE) PO PRN ×4 (00:50→18:11)
[2023-01-06] MEDS: ONDANSETRON INJ 2 MG/ML 2 ML VIAL IV SCH ×4 (04:30→20:36)
--- NOTE | 2023-01-06 08:23 | Orthopedic Progress Note ---
Date of Service January 06, 2023 Assessment & Plan (1) Cervical strain, acute: Plan: MRI of the cervical spine available for review does demonstrate evidence of multilevel cervical spondylosis with varying degrees of neuroforaminal disease. Most importantly however appreciate no evidence of fracture or ligamentous instability. I discussed with the patient treatment plan including a cervical collar to wear as needed for pain. We will continue with physical therapy. We will ask pain management to evaluate for possible medical versus interventional management. This point is nonsurgical. Admission and Anticipated Discharge Date Admission Date: January 01, 2023 Subjective Patient continues to complain of cervicalgia. He does get some relief from his pain medications but is concerned it does not last very long. Denies any gross motor deficit or weakness. Physical Exam Physical Exam: On exam is able to sit up without difficulty. He was alert and oriented. Demonstrates no gross strength deficits. Results & Data ([facility]) Vital Signs (Past 12 Hours) Vital Signs Temp Pulse Pulse Resp BP Pulse Ox O2 Del Method 01/06/23 07:22 36.5 C 74 18 123/76 96 Room Air 01/05/23 22:00 103 H 01/05/23 22:22 36.7 C 95 H 18 133/79 95 Room Air
[2023-01-06] MEDS: THIAMINE HCL 100 MG TAB PO SCH (09:00)
[2023-01-06] MEDS: FOLIC ACID 1 MG TAB PO SCH (09:00)
[2023-01-06] MEDS: PHENobarbitaL 30 MG TAB PO SCH (09:04)
[2023-01-06] MEDS: BACLOFEN 10 MG TAB PO PRN ×2 (09:04→16:48)
[2023-01-06] MEDS ORDERED: DOCUSATE SODIUM 100 MG CAP PO PRN (09:40)
[2023-01-06] MEDS ORDERED: MoRPHine SULFATE 2 MG/ML CARP IV ONE (10:44)
[2023-01-06] MEDS ORDERED: methylPREDNISolone 20 MG in SYRINGE 0 ML IV ONE ×3 (11:00→21:00)
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
--- NOTE | 2023-01-06 16:01 | Hospitalist Progress Note ---
Date of Service January 06, 2023 Assessment & Plan (1) Alcohol withdrawal: (2) Suicidal ideations: (3) Depression: (4) Bipolar 1 disorder: (5) PTSD (post-traumatic stress disorder): (6) History of alcoholism: Plan Alcohol withdrawal Delirium Tremens Precedex drip discontinued Librium changed to phenobarbital--completed phenobarbital protocol Continue thiamine, folic acid Monitor for withdrawal Appreciate netbackup administrator help No signs of withdrawal currently Suicide Attempt PTSD/Depression/Bipolar Suicidal precautions Currently not on any medications Appreciate psychiatry input Continue1:1 observation Hydroxyzine as needed Needs Placement Cervicalgia DD: Musculoskeletal origin CT Neck:No acute cervical spine fracture or subluxation. Neck MRI:No fractures identified within the cervical spine. Stable mild anterolisthesis of C7 on T1. Multilevel degenerative changes as described above. Appreciate orthopedics Use Neck Collar Continue PT Pain Management consulted Chronic back pain with DDD: On Opioids at home Possible Narcotic abuse Cautious use of narcotics Discussed with pain management--recommends to continue current management Lung nodule on CT chest: -pt is a former smoker CT chest:7 mm subpleural nodular density within the lingula. This may represent scarring. However, [address] follow-up recommended to ensure stability. Needs follow up as outpatient Emphysema: Prior H/O smoking currently not on any inhalers No signs of exacerbation BPH S/P TURP: Monitor for any retention DVT Px: Lovenox SQ Code Status: FULL CODE Admission and Anticipated Discharge Date Admission Date: January 01, 2023 Subjective Patient is seen and examined at bedside Reports persistent Neck pain No other complaints Denies any chest pain, dyspnea, nausea, abdominal pain Review of Systems Review of Systems: All systems reviewed & are unremarkable except as noted in Subjective Physical Exam Physical Exam: Physical Exam: Vitals signs as noted above General Appearance:Moderately built and nourished, Mild distress Head: normocephalic, Atraumatic Eyes: normal inspection, EOMI Neck: supple, Trachea midline Respiratory/Chest: Normal breath sounds, CTA, No accessory muscle use Cardiovascular: S1, S2, No murmur Abdomen/GI:Soft, Non tender, Bowel sounds present Extremities/Musculoskeletal:normal inspection, no edema Neurologic/Psych:AAOX3, grossly no focal neurological deficits, +Tremor Skin: normal color, warm Results & Data Results & Data ([facility]) Vital Signs (Past 12 Hours) Vital Signs Temp Pulse Pulse Resp BP Pulse Ox O2 Del Method 01/06/23 15:42 77 01/06/23 15:24 36.5 C 71 18 128/80 95 Room Air 01/06/23 11:34 36.4 C L 74 18 145/85 H 96 Room Air 01/06/23 08:00 75 01/06/23 07:22 36.5 C 74 18 123/76 96 Room Air
[2023-01-06] MEDS: ACETAMINOPHEN 325 MG TAB PO PRN ×2 (16:48→23:15)
[2023-01-06] MEDS: ENOXAPARIN INJ 40 MG/0.4 ML SYR SQ SCH (20:35)
[2023-01-06] MEDS ORDERED: MoRPHine SULFATE 4 MG/ML 1 ML CARP\\VIAL IV STA (20:48)
[2023-01-06] MEDS: hydrOXYzine HCl 25 MG TAB PO PRN (23:15)
[2023-01-07] MEDS: oxyCODONE HCL IR 5 MG TAB (IMMEDIATE RELEASE) PO PRN ×5 (03:59→21:52)
[2023-01-07] MEDS: BACLOFEN 10 MG TAB PO PRN (04:04)
[2023-01-07] MEDS: ONDANSETRON INJ 2 MG/ML 2 ML VIAL IV SCH ×4 (04:05→22:19)
[2023-01-07] MEDS: THIAMINE HCL 100 MG TAB PO SCH (07:54)
[2023-01-07] MEDS: FOLIC ACID 1 MG TAB PO SCH (07:54)
[2023-01-07] MEDS: POLYETHYLENE (MIRALAX) 17 GM PACK PO PRN (10:18)
[2023-01-07] MEDS: ACETAMINOPHEN 325 MG TAB PO PRN ×2 (12:06→21:52)
[2023-01-07] MEDS ORDERED: TRIAMCINOLONE ACET 40 MG/ML VIAL ONE (13:20)
[2023-01-07] MEDS ORDERED: KETOROLAC 30 MG/ML VIAL ONE (13:20)
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
--- NOTE | 2023-01-07 16:36 | Hospitalist Progress Note ---
Date of Service January 07, 2023 Assessment & Plan (1) Alcohol withdrawal: (2) Suicidal ideations: (3) Depression: (4) Bipolar 1 disorder: (5) PTSD (post-traumatic stress disorder): (6) History of alcoholism: Plan Alcohol withdrawal Delirium Tremens Precedex drip discontinued Librium changed to phenobarbital--completed phenobarbital protocol Continue thiamine, folic acid Monitor for withdrawal Appreciate chef broiler or fry help No signs of withdrawal currently Resolved Suicide Attempt PTSD/Depression/Bipolar Suicidal precautions Currently not on any medications Appreciate psychiatry input Continue1:1 observation Hydroxyzine as needed Needs Placement Cervicalgia DD: Musculoskeletal origin CT Neck:No acute cervical spine fracture or subluxation. Neck MRI:No fractures identified within the cervical spine. Stable mild anterolisthesis of C7 on T1. Multilevel degenerative changes as described above. Appreciate orthopedics and pain management Input Continue Neck Collar Continue PT Continue baclofen Avoid IV narcotics as able Plan for trigger point injection trial as per pain management Chronic back pain with DDD: On Opioids at home Possible Narcotic abuse Cautious use of narcotics Discussed with pain management--recommends to continue current management Lung nodule on CT chest: -pt is a former smoker CT chest:7 mm subpleural nodular density within the lingula. This may represent scarring. However, [address] follow-up recommended to ensure stability. Needs follow up as outpatient Emphysema: Prior H/O smoking currently not on any inhalers No signs of exacerbation BPH S/P TURP: Monitor for any retention DVT Px: Lovenox SQ Code Status: FULL CODE Admission and Anticipated Discharge Date Admission Date: January 01, 2023 Subjective Patient is seen and examined at bedside Reports Neck pain Requests for IV Narcotics Denies any chest pain, dyspnea, nausea, abdominal pain No other complaints Review of Systems Review of Systems: All systems reviewed & are unremarkable except as noted in Subjective Physical Exam Physical Exam: Physical Exam: Vitals signs as noted above General Appearance:Moderately built and nourished, Mild distress Head: normocephalic, Atraumatic Eyes: normal inspection, EOMI Neck: supple, Trachea midline, +Neck Collar Respiratory/Chest: Normal breath sounds, CTA, No accessory muscle use Cardiovascular: S1, S2, No murmur Abdomen/GI:Soft, Non tender, Bowel sounds present Extremities/Musculoskeletal:normal inspection, no edema Neurologic/Psych:AAOX3, grossly no focal neurological deficits, +Tremor Skin: normal color, warm Results & Data Results & Data ([facility]) Vital Signs (Past 12 Hours) Vital Signs Temp Pulse Pulse Resp BP Pulse Ox O2 Del Method 01/07/23 16:00 65 01/07/23 14:34 36.4 C L 65 18 149/81 H 98 Room Air 01/07/23 11:11 36.6 C 56 L 16 134/86 96 Room Air 01/07/23 08:00 63 01/07/23 07:31 36.4 C L 69 18 144/85 H 97 Room Air
[2023-01-07] MEDS: BACLOFEN 10 MG TAB PO SCH ×2 (17:01→20:52)
[2023-01-07] MEDS: ENOXAPARIN INJ 40 MG/0.4 ML SYR SQ SCH (20:51)
[2023-01-08] MEDS: ONDANSETRON INJ 2 MG/ML 2 ML VIAL IV SCH ×4 (04:39→22:32)
[2023-01-08] MEDS: oxyCODONE HCL IR 5 MG TAB (IMMEDIATE RELEASE) PO PRN ×5 (06:02→22:35)
[2023-01-08 06:34] LABS: Hematocrit (blood only) 35.4 % (42.0-52.0); Hemoglobin 12.2 g/dl (14.0-18.0); Mean Corpuscular Hemoglobin 30.3 pg (25.0-34.0); Mean Corpuscular Hgb Conc 34.5 g/dL (32.0-36.0); Mean Corpuscular Volume 87.8 fL (80.0-100.0); Mean Platelet Volume 8.9 fL (9.4-12.4); Platelet Count 360 K/uL (130-400); RDW Coefficient of Variation 13.2 % (11.5-14.5); RDW Standard Deviation 42.7 fL (36.4-46.3); Red Blood Count 4.03 M/uL (4.70-6.10); White Blood Count 9.28 K/ul (4.8-10.8)
[2023-01-08] MEDS: POLYETHYLENE (MIRALAX) 17 GM PACK PO PRN ×2 (07:14→22:35)
[2023-01-08] MEDS: BACLOFEN 10 MG TAB PO SCH ×3 (07:14→22:31)
[2023-01-08] MEDS: THIAMINE HCL 100 MG TAB PO SCH (07:15)
[2023-01-08] MEDS: FOLIC ACID 1 MG TAB PO SCH (07:15)
[2023-01-08 09:57] LABS: BUN Creatinine Ratio 20.5 (10-20); Calcium 9.2 mg/dl (8.5-10.1); Creatinine Clr Calc Pharmacy 107.8 ml/min; Est GFR (African American) 113.2 ml/min; Est GFR (Non-African American) 97.7 ml/min; Potassium 4.5 mmol/L (3.5-5.1)
[2023-01-08] MEDS: ACETAMINOPHEN 325 MG TAB PO PRN (10:04)
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
--- NOTE | 2023-01-08 18:05 | Hospitalist Progress Note ---
Date of Service January 08, 2023 Assessment & Plan (1) Alcohol withdrawal: (2) Suicidal ideations: (3) Depression: (4) Bipolar 1 disorder: (5) PTSD (post-traumatic stress disorder): (6) History of alcoholism: Plan Alcohol withdrawal Delirium Tremens s/p Precedex drip and s/p phenobarbital protocol Continue thiamine, folic acid No signs of withdrawal currently Resolved Suicide Attempt vs likely malingering PTSD/Depression/Bipolar Controlled substance seeking habit + Suicidal precautions Currently not on any medications Appreciate psychiatry input Will DC 1:1, c/w q15 min check. Hydroxyzine as needed Cervicalgia DD: Musculoskeletal origin CT Neck:No acute cervical spine fracture or subluxation. Neck MRI:No fractures identified within the cervical spine. Stable mild anterolisthesis of C7 on T1. Multilevel degenerative changes as described above. Appreciate orthopedics and pain management Input , s/p trigger point injection 3/3 Continue Neck Collar Continue PT Continue baclofen Avoid IV narcotics. Chronic back pain with DDD: On Opioids at home Possible Narcotic abuse Cautious use of narcotics Discussed with pain management--recommends to continue current management Lung nodule on CT chest: -pt is a former smoker CT chest:7 mm subpleural nodular density within the lingula. This may represent scarring. However, [address] follow-up recommended to ensure stability. Needs follow up as outpatient Emphysema: Prior H/O smoking currently not on any inhalers No signs of exacerbation BPH S/P TURP: Monitor for any retention DVT Px: Lovenox SQ Code Status: FULL CODE Admission and Anticipated Discharge Date Admission Date: January 01, 2023 Subjective Patient seen and examined at bedside as a follow-up of alcohol withdrawal, suicidal attempt, cervicalgia. Patient was sitting up in bed, on room air, NAD, reports no new acute event overnight, reports eating okay and moving bowels okay, reports pain at his neck, cervical brace in situ. Denies other complaints. Physical Exam Physical Exam: GENERAL: Alert and oriented x3. NAD, on RA. HEENT: No pallor, no icterus. Pupils equal, round and reactive to light. Oral mucosa moist. Cervical brace in situ. NECK: No JVD, no neck masses. HEART: S1 and S2 heard. Regular rate and rhythm. No murmur, no gallop. RESPIRATORY SYSTEM: Normal AP diameter. No accessory muscle use. No wheezing, no crackles. ABDOMEN: Soft, bowel sounds present, nontender, no distention. CENTRAL NERVOUS SYSTEM: No facial droop. Speech is clear. Obeys simple commands. Moves extremities. EXTREMITIES: No edema, no erythema seen. Results & Data Results & Data ([facility]) Vital Signs (Past 12 Hours) Vital Signs Temp Pulse Pulse Resp BP Pulse Ox O2 Del Method 01/08/23 16:00 82 01/08/23 08:00 75 01/08/23 15:49 36.4 C L 63 18 147/76 H 98 Room Air 01/08/23 07:13 36.5 C 65 20 127/76 94 Room Air
[2023-01-08] MEDS: ENOXAPARIN INJ 40 MG/0.4 ML SYR SQ SCH (22:32)
[2023-01-09] MEDS: ONDANSETRON INJ 2 MG/ML 2 ML VIAL IV SCH ×3 (03:37→08:30)
[2023-01-09] MEDS: oxyCODONE HCL IR 5 MG TAB (IMMEDIATE RELEASE) PO PRN ×3 (03:37→12:26)
[2023-01-09] MEDS: ACETAMINOPHEN 325 MG TAB PO PRN ×2 (03:37→12:27)
[2023-01-09] MEDS: FOLIC ACID 1 MG TAB PO SCH (08:30)
[2023-01-09] MEDS: THIAMINE HCL 100 MG TAB PO SCH (08:30)
[2023-01-09] MEDS: BACLOFEN 10 MG TAB PO SCH (08:30)
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
== END 2023-01-09 15:35 | disposition home or self-care (01) | DRG 897 ==
LOC: ED 20:10 → SUATTDRO 01-01 18:07 → SUPCPDRO 01-01 18:07 → 2W 01-01 18:07 → 1E 01-02 04:37 → 2W 01-04 15:55